=== PATIENT | female | born 1955 | race Caucasian/White ===

== ENCOUNTER → 2016-03-24 | Outpatient (REF) | payer MEDICARE ==
[~2016-03-24] MED LIST: /DULO30CA OR; /MOXI40TA; /PANT40TA; ACET50TA PO; ASPI81TA45 PO; ATROVENT; BACTROBAN TOP; COLA100C2; COLACE; CYMB60CA3 PO; DOCU10ELUD PO; FISH1000 PO; GLUC500T PO; HYDR25TA6; IBUPPOW25; ICAPCAP PO; JANUVIA; LASI20TA; LASI20TA PO; LASI40TA PO; LEVA500T PO; LIDO5DIS; LISI10TA4; LISI5TAB PO; LISINOPRIL/HCTZ PO; MELOPOW PO; NICO21DI4; NICO21DI4 TD; NICO21PAT EXT; OMEP20TA7 PO; PERC5TAB8; PERCOCET FT; PRED10TA2; ROSU10TA OR; SALI0.9I2 IJ; SENNSYP; SIMV20TA2; SIMV20TA2 PO; TIZA4CAP PO; ULTR50TA PO; VANC1ADVIV IV; VICO5TA PO; VICOBULK PO; VITA50TA12 IM; WARF5TAB66 PO; XOPENEX; [UNRECOGNIZED DRUG - CODE] IV; [UNRECOGNIZED DRUG - OTHER]
[2016-03-24 11:16] LABS: INR 1.6
== END ==
LOC: M SFHCCLAY 08:29
PROVIDERS: ATTEND Family Medicine
DX: Z51.81 Encounter for therapeutic drug level monitoring (principal); Z79.01 Long term (current) use of anticoagulants

== ENCOUNTER → 2016-04-07 | Outpatient (REF) | payer MEDICARE ==
[2016-04-07 17:56] LABS: INR 1.98
== END ==
LOC: M SFHCCLAY 10:06
PROVIDERS: ATTEND Family Medicine
DX: Z51.81 Encounter for therapeutic drug level monitoring (principal); Z79.01 Long term (current) use of anticoagulants

== ENCOUNTER → 2016-04-22 | Outpatient (REF) | payer MEDICARE ==
[2016-04-22 11:38] LABS: INR 2.28
== END ==
LOC: M SFHCCLAY 08:11
PROVIDERS: ATTEND Family Medicine
DX: Z79.01 Long term (current) use of anticoagulants (principal)

== ENCOUNTER → 2016-05-13 | Outpatient (REF) | payer MEDICARE ==
[2016-05-13 11:48] LABS: INR 1.74
== END ==
LOC: M SFHCCLAY 08:22
PROVIDERS: ATTEND Family Medicine
DX: Z79.01 Long term (current) use of anticoagulants (principal)

== ENCOUNTER → 2016-05-27 | Outpatient (REF) | payer MEDICARE ==
[2016-05-27 11:33] LABS: INR 1.55
== END ==
LOC: M SFHCCLAY 08:21
PROVIDERS: ATTEND Family Medicine
DX: Z79.01 Long term (current) use of anticoagulants (principal)

== ENCOUNTER → 2016-06-03 | Outpatient (REF) | payer MEDICARE ==
[2016-06-03 11:47] LABS: INR 1.84
== END ==
LOC: M SFHCCLAY 08:20
PROVIDERS: ATTEND Family Medicine
DX: Z79.01 Long term (current) use of anticoagulants (principal)

== ENCOUNTER → 2016-06-10 | Outpatient (REF) | payer MEDICARE ==
[2016-06-10 12:34] LABS: INR 1.57
== END ==
LOC: M SFHCCLAY 08:20
PROVIDERS: ATTEND Family Medicine
DX: Z79.01 Long term (current) use of anticoagulants (principal)

== ENCOUNTER → 2016-06-17 | Outpatient (REF) | payer MEDICARE ==
[2016-06-17 11:32] LABS: INR 2.18
== END ==
LOC: M SFHCCLAY 08:22
PROVIDERS: ATTEND Family Medicine
DX: Z79.01 Long term (current) use of anticoagulants (principal)

== ENCOUNTER → 2016-06-24 | Outpatient (REF) | payer MEDICARE ==
[2016-06-24 12:23] LABS: INR 1.85
== END ==
LOC: M SFHCCAPE 08:18
PROVIDERS: ATTEND Family Medicine
DX: Z79.01 Long term (current) use of anticoagulants (principal)

== ENCOUNTER → 2016-07-05 | Outpatient (REF) | payer MEDICARE ==
[2016-07-05 12:44] LABS: INR 2.93
== END ==
LOC: M SFHCCLAY 08:26
PROVIDERS: ATTEND Family Medicine
DX: Z51.81 Encounter for therapeutic drug level monitoring (principal); Z79.01 Long term (current) use of anticoagulants

== ENCOUNTER → 2016-07-12 | Outpatient (REF) | payer MEDICARE ==
[2016-07-12 19:13] LABS: BASO % 0.4 % (0.0-1.0); EOS # 0.1 K/mm3 (0.0-0.50); LARGE UNSTAINED CELL # 0.1 K/mm3 (0.0-0.4); LARGE UNSTAINED CELL % 1.2 % (0.0-4.0); LYMPH # 3.2 K/mm3 (1.5-4.5); LYMPH % 28.5 % (24.0-44.0); MEAN CORPUSCULAR HEMOGLOBIN 26.2 pg (27.0-33.0); MEAN CORPUSCULAR HGB CONC 31.2 g/dl (32.0-36.5); MEAN CORPUSCULAR VOLUME 83.8 fl (80.0-96.0); MONO # 0.5 K/mm3 (0.0-0.8); MONO % 4.9 % (0.0-5.0); NEUTROPHILS # 6.8 K/mm3 (1.8-7.7); PLATELET COUNT, AUTOMATED 358 k/mm3 (150-450); RED CELL DISTRIBUTION WIDTH 16.3 % (11.5-14.5); WHITE BLOOD COUNT 10.6 K/mm3 (4.0-10.0)
[2016-07-12 19:39] LABS: ALBUMIN 3.8 GM/DL (3.2-5.2); ALBUMIN/GLOBULIN RATIO 1.12 (1.00-1.93); ALKALINE PHOSPHATASE 101 U/L (45-117); ALT/SGPT 21 U/L (12-78); ANION GAP 12 MEQ/L (8-16); AST/SGOT 10 U/L (15-37); BILIRUBIN,TOTAL 0.3 MG/DL (0.2-1.0); BLOOD UREA NITROGEN 21 MG/DL (7-18); CALCIUM LEVEL 8.6 MG/DL (8.8-10.2); CARBON DIOXIDE LEVEL 23 MEQ/L (21-32); CHLORIDE LEVEL 105 MEQ/L (98-107); CHOLESTEROL LEVEL 163 MG/DL (<200); CREATININE FOR GFR 0.74 MG/DL (0.55-1.02); GLOMERULAR FILTRATION RATE > 60.0 (>45); GLUCOSE, FASTING 100 MG/DL (80-110); POTASSIUM SERUM 4.1 MEQ/L (3.5-5.1); SODIUM LEVEL 140 MEQ/L (136-145); THYROXINE (T4) 11.6 UG/DL (4.5-12.0); TOTAL PROTEIN 7.2 GM/DL (6.4-8.2); TRIGLYCERIDES LEVEL 262 MG/DL (<150)
[2016-07-12 20:03] LABS: VITAMIN B12 LEVEL 396 PG/ML (247-911)
== END ==
LOC: M SFHCCLAY 11:21
PROVIDERS: ATTEND Family Medicine
DX: E53.8 Deficiency of other specified B group vitamins (principal); E11.9 Type 2 diabetes mellitus without complications; E78.2 Mixed hyperlipidemia; E03.9 Hypothyroidism, unspecified; I10 Essential (primary) hypertension; J01.00 Acute maxillary sinusitis, unspecified; J44.1 Chronic obstructive pulmonary disease with (acute) exacerbation; K21.9 Gastro-esophageal reflux disease without esophagitis; E55.9 Vitamin D deficiency, unspecified; Z51.81 Encounter for therapeutic drug level monitoring; Z79.01 Long term (current) use of anticoagulants

== ENCOUNTER → 2016-07-20 | Outpatient (REF) | payer MEDICARE ==
[2016-07-20 11:49] LABS: INR 2.36
== END ==
LOC: M SFHCCLAY 08:10
PROVIDERS: ATTEND Family Medicine
DX: Z79.01 Long term (current) use of anticoagulants (principal)

== ENCOUNTER → 2016-08-03 | Outpatient (REF) | payer MEDICARE ==
[2016-08-03 12:02] LABS: INR 2.41
== END ==
LOC: M SFHCCLAY 07:59
PROVIDERS: ATTEND Family Medicine
DX: Z79.01 Long term (current) use of anticoagulants (principal)

== ENCOUNTER → 2016-08-26 | Outpatient (REF) | payer MEDICARE ==
[2016-08-26 16:49] LABS: INR 2.68
== END ==
LOC: M SFHCCLAY 12:53
PROVIDERS: ATTEND Family Medicine
DX: Z79.01 Long term (current) use of anticoagulants (principal)

== ENCOUNTER → 2016-09-22 | Outpatient (REF) | payer MEDICARE ==
[2016-09-22 11:20] LABS: INR 2.8
== END ==
LOC: M SFHCCLAY 07:32
PROVIDERS: ATTEND Family Medicine
DX: Z79.01 Long term (current) use of anticoagulants (principal)

== ENCOUNTER → 2016-10-21 | Outpatient (REF) | payer MEDICARE ==
[2016-10-21 12:23] LABS: INR 2.55
== END ==
LOC: M SFHCCLAY 07:37
PROVIDERS: ATTEND Family Medicine
DX: Z79.01 Long term (current) use of anticoagulants (principal)

== ENCOUNTER → 2016-11-18 | Outpatient (REF) | payer MEDICARE ==
[2016-11-18 12:32] LABS: INR 2.29
== END ==
LOC: M SFHCCLAY 08:02
PROVIDERS: ATTEND Family Medicine
DX: Z79.01 Long term (current) use of anticoagulants (principal)

== ENCOUNTER → 2016-12-02 | Outpatient (REF) | payer MEDICARE ==
[2016-12-02 19:35] LABS: ALBUMIN 3.9 GM/DL (3.2-5.2); ALKALINE PHOSPHATASE 95 U/L (45-117); ALT/SGPT 22 U/L (12-78); AST/SGOT 13 U/L (15-37); BILIRUBIN,TOTAL 0.2 MG/DL (0.2-1.0); BLOOD UREA NITROGEN 16 MG/DL (7-18); CALCIUM LEVEL 9.7 MG/DL (8.8-10.2); CARBON DIOXIDE LEVEL 27 MEQ/L (21-32); CHLORIDE LEVEL 107 MEQ/L (98-107); CREATININE FOR GFR 0.67 MG/DL (0.55-1.02); GLUCOSE, FASTING 111 MG/DL (80-110); POTASSIUM SERUM 4.5 MEQ/L (3.5-5.1); SODIUM LEVEL 143 MEQ/L (136-145); THYROXINE (T4) 12.1 UG/DL (4.5-12.0); TOTAL PROTEIN 7.4 GM/DL (6.4-8.2)
[2016-12-02 19:55] LABS: ANION GAP 9 MEQ/L (8-16)
[2016-12-02 19:56] LABS: ALBUMIN/GLOBULIN RATIO 1.11 (1.00-1.93)
== END ==
LOC: M SFHCCLAY 13:13
PROVIDERS: ATTEND Family Medicine
DX: E11.9 Type 2 diabetes mellitus without complications (principal); G44.52 New daily persistent headache (NDPH); E03.9 Hypothyroidism, unspecified
CPT/HCPCS: 80053; 83036; 84436; 84443; 84480; 85652; 86140; G0463

== ENCOUNTER → 2016-12-20 | Outpatient (REF) | payer MEDICARE ==
[2016-12-20 12:08] LABS: INR 1.87
== END ==
LOC: M SFHCCLAY 07:50
PROVIDERS: ATTEND Family Medicine
DX: Z79.01 Long term (current) use of anticoagulants (principal)

== ENCOUNTER → 2017-01-04 | Outpatient (REF) | payer MEDICARE ==
[2017-01-04 12:52] LABS: INR 2.68
== END ==
LOC: M SFHCCLAY 08:45
PROVIDERS: ATTEND Family Medicine
DX: Z79.01 Long term (current) use of anticoagulants (principal)

== ENCOUNTER → 2017-01-25 | Outpatient (REF) | payer MEDICARE ==
[2017-01-25 12:47] LABS: INR 2.22
== END ==
LOC: M SFHCCLAY 08:00
PROVIDERS: ATTEND Family Medicine
DX: Z79.01 Long term (current) use of anticoagulants (principal)

== ENCOUNTER → 2017-02-28 | Outpatient (REF) | payer MEDICARE ==
[2017-02-28 11:56] LABS: INR 2.15
== END ==
LOC: M SFHCCLAY 08:17
PROVIDERS: ATTEND Family Medicine
DX: Z79.01 Long term (current) use of anticoagulants (principal)

== ENCOUNTER → 2017-03-29 | Outpatient (REF) | payer MEDICARE ==
[2017-03-29 11:42] LABS: INR 2.48; PROTHROMBIN TIME 27.8 SECONDS (12.4-14.5)
== END ==
LOC: M SFHCCLAY 08:08
DX: Z79.01 Long term (current) use of anticoagulants (principal)
CPT/HCPCS: 85610

== ENCOUNTER → 2017-04-26 | Outpatient (REF) | payer MEDICARE ==
[2017-04-26 11:38] LABS: INR 2.62; PROTHROMBIN TIME 29.1 SECONDS (12.4-14.5)
== END ==
LOC: M SFHCCLAY 08:01
DX: Z79.01 Long term (current) use of anticoagulants (principal)
CPT/HCPCS: 85610

== ENCOUNTER → 2017-05-24 | Outpatient (REF) | payer MEDICARE ==
[2017-05-24 12:25] LABS: INR 3.33; PROTHROMBIN TIME 35.4 SECONDS (12.4-14.5)
== END ==
LOC: M SFHCCLAY 08:03
DX: Z79.01 Long term (current) use of anticoagulants (principal)
CPT/HCPCS: 85610

== ENCOUNTER → 2017-06-07 | Outpatient (REF) | payer MEDICARE ==
[2017-06-07 11:26] LABS: BASO % 0.5 % (0.0-1.0); EOS # 0.2 10^3/uL (0.0-0.50); EOS % 2.5 % (0.0-3.0); HEMATOCRIT 38.1 % (36.0-47.0); HEMOGLOBIN 11.3 g/dl (12.0-16.0); IMMATURE GRANULOCYTE % 0.3 % (0-3.0); LYMPH # 2.3 10^3/uL (1.5-4.5); LYMPH % 29.3 % (24.0-44.0); MEAN CORPUSCULAR HEMOGLOBIN 24.3 pg (27.0-33.0); MEAN CORPUSCULAR HGB CONC 29.7 g/dl (32.0-36.5); MEAN CORPUSCULAR VOLUME 81.9 fl (80.0-96.0); MONO # 0.5 10^3/uL (0.0-0.8); MONO % 6.8 % (0.0-5.0); NEUTROPHILS # 4.8 10^3/uL (1.8-7.7); NEUTROPHILS % 60.6 % (36.0-66.0); PLATELET COUNT, AUTOMATED 314 10^3/uL (150-450); RED BLOOD COUNT 4.65 10^6/uL (4.00-5.40); RED CELL DISTRIBUTION WIDTH 16.5 % (11.5-14.5)
[2017-06-07 11:34] LABS: PROTHROMBIN TIME 26.2 SECONDS (12.4-14.5)
[2017-06-07 11:42] LABS: ALBUMIN 3.5 GM/DL (3.2-5.2); ALBUMIN/GLOBULIN RATIO 1.03 (1.00-1.93); ALKALINE PHOSPHATASE 87 U/L (45-117); ALT/SGPT 18 U/L (12-78); ANION GAP 7 MEQ/L (8-16); AST/SGOT 9 U/L (7-37); BILIRUBIN,TOTAL 0.2 MG/DL (0.2-1.0); BLOOD UREA NITROGEN 16 MG/DL (7-18); CALCIUM LEVEL 8.5 MG/DL (8.8-10.2); CARBON DIOXIDE LEVEL 28 MEQ/L (21-32); CHLORIDE LEVEL 106 MEQ/L (98-107); CHOLESTEROL LEVEL 133 MG/DL (<200); CHOLESTEROL RISK RATIO 3.325 (<5); GLOMERULAR FILTRATION RATE > 60.0 (>45); GLUCOSE, FASTING 162 MG/DL (70-100); HDL CHOLESTEROL 40 MG/DL (>40); LDL CHOLESTEROL 48.2 MG/DL (<100); NON-HDL-C 93 MG/DL; POTASSIUM SERUM 4.2 MEQ/L (3.5-5.1); SODIUM LEVEL 141 MEQ/L (136-145); TOTAL PROTEIN 6.9 GM/DL (6.4-8.2); TRIGLYCERIDES LEVEL 224 MG/DL (<150)
[2017-06-07 11:44] LABS: THYROID STIMULATING HORMONE 0.426 uIU/ML (0.358-3.740); VITAMIN B12 LEVEL 319 PG/ML (247-911)
[2017-06-07 11:44] LABS: THYROXINE (T4) 10.5 UG/DL (4.5-12.0)
[2017-06-07 11:46] LABS: FOLATE 13.7 NG/ML (>5.4)
[2017-06-07 11:47] LABS: ESTIMATED AVERAGE GLUCOSE 169 MG/DL (60-110); HEMOGLOBIN A1c 7.5 %
[2017-06-07 12:12] LABS: MALB URINE SIEMENS 54.5 MG/L
[2017-06-09 00:07] LABS: VITAMIN D 1,25 DIHYDROXY 72.8 pg/mL (19.9-79.3)
== END ==
LOC: M SFHCCLAY 08:20
DX: Z51.81 Encounter for therapeutic drug level monitoring (principal); Z79.01 Long term (current) use of anticoagulants; E53.8 Deficiency of other specified B group vitamins; E03.9 Hypothyroidism, unspecified; E55.9 Vitamin D deficiency, unspecified; I10 Essential (primary) hypertension; E11.9 Type 2 diabetes mellitus without complications
CPT/HCPCS: 82746

== ENCOUNTER → 2017-07-05 | Outpatient (REF) | payer MEDICARE ==
[2017-07-05 16:54] LABS: INR 2.42; PROTHROMBIN TIME 27.3 SECONDS (12.4-14.5)
== END ==
LOC: M SFHCCLAY 13:23
DX: Z79.01 Long term (current) use of anticoagulants (principal)
CPT/HCPCS: 85610

== ENCOUNTER → 2017-08-04 | Outpatient (REF) | payer MEDICARE ==
[2017-08-04 12:14] LABS: INR 0.97
== END ==
LOC: M SFHCCLAY 08:51
DX: Z79.01 Long term (current) use of anticoagulants (principal)
CPT/HCPCS: 85610

== ENCOUNTER → 2017-08-16 | Outpatient (REF) | payer MEDICARE ==
[2017-08-16 16:57] LABS: INR 2.71; PROTHROMBIN TIME 29.9 SECONDS (12.4-14.5)
== END ==
LOC: M SFHCCLAY 10:53
DX: Z79.01 Long term (current) use of anticoagulants (principal)
CPT/HCPCS: 85610

== ENCOUNTER → 2017-09-19 | Outpatient (REF) | payer MEDICARE ==
[2017-09-19 11:55] LABS: HEMATOCRIT 38.4 % (36.0-47.0); HEMOGLOBIN 11.6 g/dl (12.0-15.5); MEAN CORPUSCULAR HEMOGLOBIN 24.7 pg (27.0-33.0); MEAN CORPUSCULAR HGB CONC 30.2 g/dl (32.0-36.5); MEAN CORPUSCULAR VOLUME 81.9 fl (80.0-96.0); PLATELET COUNT, AUTOMATED 296 10^3/uL (150-450); RED BLOOD COUNT 4.69 10^6/uL (4.00-5.40)
[2017-09-19 12:01] LABS: ADD MANUAL DIFFER YES; DIFF SLIDE NUMBER 164; POSITIVE DIFF POS FLAG
[2017-09-19 12:17] LABS: INR 1.43; PROTHROMBIN TIME 17.7 SECONDS (12.1-14.4)
[2017-09-19 12:47] LABS: ALBUMIN 3.6 GM/DL (3.2-5.2); ALBUMIN/GLOBULIN RATIO 1.09 (1.00-1.93); ALKALINE PHOSPHATASE 84 U/L (45-117); ALT/SGPT 18 U/L (12-78); ANION GAP 8 MEQ/L (8-16); AST/SGOT 6 U/L (7-37); BILIRUBIN,TOTAL 0.2 MG/DL (0.2-1.0); BLOOD UREA NITROGEN 25 MG/DL (7-18); CALCIUM LEVEL 8.6 MG/DL (8.8-10.2); CARBON DIOXIDE LEVEL 27 MEQ/L (21-32); CHLORIDE LEVEL 106 MEQ/L (98-107); CREATININE FOR GFR 0.81 MG/DL (0.55-1.30); GLOMERULAR FILTRATION RATE > 60.0 (>45); GLUCOSE, FASTING 128 MG/DL (70-100); POTASSIUM SERUM 4.3 MEQ/L (3.5-5.1); SODIUM LEVEL 141 MEQ/L (136-145); THYROID STIMULATING HORMONE 0.675 uIU/ML (0.358-3.740); TOTAL PROTEIN 6.9 GM/DL (6.4-8.2)
[2017-09-19 13:07] LABS: ANISOCYTOSIS 1+; BASOPHILS 1 % (0-4); EOSINOPHILS 4 % (0-5); LYMPHOCYTES 39 % (16-52); MONOCYTES 3 % (0-8); MYELOCYTES 1 % (0-0); NEUTROPHILS 52 % (35-75); PLATELET ESTIMATE NORMAL (NORMAL); POIKILOCYTOSIS 1+
[2017-09-19 14:01] LABS: ESTIMATED AVERAGE GLUCOSE 177 MG/DL (60-110); HEMOGLOBIN A1c 7.8 %
== END ==
LOC: M SFHCCLAY 08:21
DX: Z51.81 Encounter for therapeutic drug level monitoring (principal); Z79.01 Long term (current) use of anticoagulants; I10 Essential (primary) hypertension; E11.9 Type 2 diabetes mellitus without complications; E03.9 Hypothyroidism, unspecified
CPT/HCPCS: 84443

== ENCOUNTER → 2017-10-03 | Outpatient (REF) | payer MEDICARE ==
[2017-10-03 12:29] LABS: INR 4.54; PROTHROMBIN TIME 44.2 SECONDS (12.1-14.4)
== END ==
LOC: M SFHCCLAY 10:03
DX: Z79.01 Long term (current) use of anticoagulants (principal); Z86.718 Personal history of other venous thrombosis and embolism; D68.51 Activated protein C resistance
CPT/HCPCS: 85610

== ENCOUNTER → 2017-10-18 | Outpatient (REF) | payer MEDICARE ==
[2017-10-18 11:57] LABS: INR 2.68; PROTHROMBIN TIME 29.1 SECONDS (12.1-14.4)
== END ==
LOC: M SFHCCLAY 08:58
DX: Z79.01 Long term (current) use of anticoagulants (principal)
CPT/HCPCS: 85610

== ENCOUNTER → 2017-11-01 | Outpatient (REF) | payer MEDICARE | LOC: M SFHCCLAY 08:19 | DX: Z86.718 Personal history of other venous thrombosis and embolism (principal) ==

== ENCOUNTER → 2017-11-23 | Outpatient (REF) | payer MEDICARE ==
[2017-11-23 18:32] LABS: INR 2.38; PROTHROMBIN TIME 26.5 SECONDS (12.1-14.4)
== END ==
LOC: M SFHCCLAY 10:16
DX: Z79.01 Long term (current) use of anticoagulants (principal)
CPT/HCPCS: 85610

== ENCOUNTER → 2018-08-28 | Outpatient (REF) | payer MEDICARE ==
[~2018-08-28] MED LIST changes: -/DULO30CA OR; -/MOXI40TA; -/PANT40TA; -ACET50TA PO; +AVEL1TAB2; +CRES10TA32 OR; +CYMB1CAP5 OR; -DOCU10ELUD PO; +DOCU5LIQ PO; +HEPA1INJ IV; +MAPA500T17 PO; +NICO21DI3 EXT; -NICO21PAT EXT; +OXYC1TAB23 FT; -PERCOCET FT; +PROT1TAB2; -ROSU10TA OR; -[UNRECOGNIZED DRUG - CODE] IV
[2018-08-29 12:04] LABS: BASO # 0.1 10^3/uL (0.0-0.2); BASO % 0.4 % (0.0-1.0); EOS # 0.2 10^3/uL (0.0-0.50); EOS % 1.3 % (0.0-3.0); HEMATOCRIT 41.4 % (36.0-47.0); HEMOGLOBIN 12.2 g/dl (12.0-15.5); LYMPH # 3.2 10^3/uL (1.5-4.5); MEAN CORPUSCULAR HEMOGLOBIN 24.8 pg (27.0-33.0); MEAN CORPUSCULAR HGB CONC 29.5 g/dl (32.0-36.5); MEAN CORPUSCULAR VOLUME 84.3 fl (80.0-96.0); MONO # 0.7 10^3/uL (0.0-0.8); MONO % 6.1 % (0.0-5.0); NEUTROPHILS # 7.2 10^3/uL (1.8-7.7); NEUTROPHILS % 63.8 % (36.0-66.0); PLATELET COUNT, AUTOMATED 305 10^3/uL (150-450); RED BLOOD COUNT 4.91 10^6/uL (4.00-5.40); WHITE BLOOD COUNT 11.3 10^3/uL (4.0-10.0)
[2018-08-29 12:39] LABS: ALBUMIN 3.5 GM/DL (3.2-5.2); ALT/SGPT 22 U/L (12-78); BILIRUBIN,TOTAL 0.3 MG/DL (0.2-1.0); BLOOD UREA NITROGEN 17 MG/DL (7-18); CALCIUM LEVEL 9.5 MG/DL (8.8-10.2); CARBON DIOXIDE LEVEL 27 MEQ/L (21-32); CHLORIDE LEVEL 105 MEQ/L (98-107); CHOLESTEROL LEVEL 147 MG/DL (<200); CHOLESTEROL RISK RATIO 3.972 (<5); CREATININE FOR GFR 0.79 MG/DL (0.55-1.30); GLOMERULAR FILTRATION RATE > 60.0 (>45); GLUCOSE, FASTING 141 MG/DL (70-100); HDL CHOLESTEROL 37 MG/DL (>40); LDL CHOLESTEROL 37 MG/DL (<100); NON-HDL-C 110 MG/DL; POTASSIUM SERUM 4.3 MEQ/L (3.5-5.1); SODIUM LEVEL 140 MEQ/L (136-145); THYROID STIMULATING HORMONE 0.432 uIU/ML (0.358-3.740); THYROXINE (T4) 11.3 UG/DL (4.5-12.0); TOTAL PROTEIN 7.2 GM/DL (6.4-8.2); TRIGLYCERIDES LEVEL 364 MG/DL (<150); VITAMIN B12 LEVEL 246 PG/ML (247-911)
[2018-08-29 12:46] LABS: HEMOGLOBIN A1c 8.4 %
== END ==
LOC: M SFHCCLAY 14:58
PROVIDERS: ATTEND Family Medicine
DX: E11.9 Type 2 diabetes mellitus without complications (principal); I10 Essential (primary) hypertension; E53.8 Deficiency of other specified B group vitamins; E55.9 Vitamin D deficiency, unspecified; E03.9 Hypothyroidism, unspecified

== ENCOUNTER → 2018-08-28 | Outpatient (CLI) | payer MEDICARE ==
--- NOTE | 2018-08-28 16:27 | REP ---
PA and lateral chest: Comparison is 12/18/2015. The lung faustin are clear. The cardiac size is normal. The jesus alberto, mediastinum, and skeletal structures are unremarkable. Impression: Negative PA and lateral chest. There is no interval change. Electronically Signed by Lázaro Caldera MD 08/28/2018 04:18 P
== END ==
LOC: M CLY 15:52
PROVIDERS: ATTEND Family Medicine
DX: R06.02 Shortness of breath (principal); E11.9 Type 2 diabetes mellitus without complications; E55.9 Vitamin D deficiency, unspecified
CPT/HCPCS: 71046; 80053; 80061; 82607; 82652; 83036; 84436; 84443; 85025; 94010; G0463

== ENCOUNTER → 2020-04-08 | Outpatient (REF) | payer OTHER ==
[2020-04-09 11:46] LABS: BASO # 0.1 10^3/uL (0.0-0.2); BASO % 0.6 % (0.0-1.0); EOS # 0.1 10^3/uL (0.0-0.5); HEMATOCRIT 41.8 % (36.0-47.0); HEMOGLOBIN 12.2 g/dl (12.0-15.5); LYMPH # 3.3 10^3/uL (1.5-5.0); LYMPH % 24.4 % (24.0-44.0); MEAN CORPUSCULAR HEMOGLOBIN 23.9 pg (27.0-33.0); MEAN CORPUSCULAR HGB CONC 29.2 g/dl (32.0-36.5); MONO # 0.9 10^3/uL (0.0-0.8); MONO % 6.4 % (0.0-5.0); NEUTROPHILS # 9.2 10^3/uL (1.5-8.5); NEUTROPHILS % 67.3 % (36.0-66.0); PLATELET COUNT, AUTOMATED 345 10^3/uL (150-450); WHITE BLOOD COUNT 13.6 10^3/uL (4.0-10.0)
[2020-04-09 12:18] LABS: ALBUMIN 3.8 GM/DL (3.2-5.2); ALT/SGPT 16 U/L (12-78); BILIRUBIN,TOTAL 0.2 MG/DL (0.2-1.0); BLOOD UREA NITROGEN 15 MG/DL (7-18); CALCIUM LEVEL 9.3 MG/DL (8.8-10.2); CARBON DIOXIDE LEVEL 26 MEQ/L (21-32); CHLORIDE LEVEL 107 MEQ/L (98-107); CHOLESTEROL LEVEL 138 MG/DL (<200); CHOLESTEROL RISK RATIO 4.058 (<5); CREATININE FOR GFR 0.79 MG/DL (0.55-1.30); GLOMERULAR FILTRATION RATE > 60.0 (>45); GLUCOSE, FASTING 88 MG/DL (70-100); HDL CHOLESTEROL 34 MG/DL (>40); LDL CHOLESTEROL 57 MG/DL (<100); MAGNESIUM LEVEL 1.7 MG/DL (1.8-2.4); NON-HDL-C 104 MG/DL; POTASSIUM SERUM 5.7 MEQ/L (3.5-5.1); SODIUM LEVEL 140 MEQ/L (136-145); THYROID STIMULATING HORMONE 0.281 uIU/ML (0.358-3.740); TOTAL PROTEIN 7.2 GM/DL (6.4-8.2); TRIGLYCERIDES LEVEL 234 MG/DL (<150); VITAMIN B12 LEVEL 1250 PG/ML (247-911)
[2020-04-09 13:00] LABS: HEMOGLOBIN A1c 6.2 %
== END ==
LOC: M SFHCCLAY 15:20
PROVIDERS: ATTEND Family Medicine
DX: K21.9 Gastro-esophageal reflux disease without esophagitis (principal); I10 Essential (primary) hypertension; E11.9 Type 2 diabetes mellitus without complications; E03.9 Hypothyroidism, unspecified; E55.9 Vitamin D deficiency, unspecified; E53.8 Deficiency of other specified B group vitamins
CPT/HCPCS: 80053; 80061; 82607; 82652; 83036; 83735; 84443; 85025; G0463

== ENCOUNTER → 2020-08-04 | Outpatient (REF) | payer OTHER ==
[2020-08-05 11:42] LABS: BASO # 0.1 10^3/uL (0.0-0.2); BASO % 0.4 % (0.0-1.0); EOS # 0.2 10^3/uL (0.0-0.5); EOS % 1.3 % (0.0-3.0); HEMATOCRIT 40.8 % (36.0-47.0); HEMOGLOBIN 11.6 g/dl (12.0-15.5); LYMPH # 3.3 10^3/uL (1.5-5.0); LYMPH % 24.8 % (24.0-44.0); MEAN CORPUSCULAR HGB CONC 28.4 g/dl (32.0-36.5); MEAN CORPUSCULAR VOLUME 80.8 fl (80.0-96.0); MONO # 0.9 10^3/uL (0.0-0.8); MONO % 6.6 % (2.0-8.0); NEUTROPHILS # 8.8 10^3/uL (1.5-8.5); NEUTROPHILS % 66.6 % (36.0-66.0); PLATELET COUNT, AUTOMATED 355 10^3/uL (150-450); RED BLOOD COUNT 5.05 10^6/uL (4.00-5.40); WHITE BLOOD COUNT 13.2 10^3/uL (4.0-10.0)
[2020-08-05 12:15] LABS: ALBUMIN 3.6 GM/DL (3.2-5.2); ALT/SGPT 16 U/L (12-78); BILIRUBIN,TOTAL 0.3 MG/DL (0.2-1.0); BLOOD UREA NITROGEN 13 MG/DL (7-18); CALCIUM LEVEL 9.3 MG/DL (8.8-10.2); CARBON DIOXIDE LEVEL 28 MEQ/L (21-32); CHLORIDE LEVEL 103 MEQ/L (98-107); CREATININE FOR GFR 0.65 MG/DL (0.55-1.30); GLOMERULAR FILTRATION RATE > 60.0 (>45); GLUCOSE, FASTING 97 MG/DL (70-100); IRON (FE) 29 UG/DL (50-170); POTASSIUM SERUM 5.1 MEQ/L (3.5-5.1); SODIUM LEVEL 138 MEQ/L (136-145); TOTAL PROTEIN 6.9 GM/DL (6.4-8.2)
[2020-08-05 12:19] LABS: VITAMIN B12 LEVEL 410 PG/ML (247-911)
[2020-08-05 12:20] LABS: FOLATE 4.6 NG/ML (>5.4)
== END ==
LOC: M SFHCCLAY 14:42
PROVIDERS: ATTEND Family Medicine
DX: D64.9 Anemia, unspecified (principal); I10 Essential (primary) hypertension
CPT/HCPCS: 80053; 82607; 82746; 83540; 85025; G0463

== ENCOUNTER 2022-07-25 10:16 | Inpatient (IN) | payer OTHER ==
[~2022-07-25] VITALS: Ht 152.4 cm; Wt 96.0 kg
[2022-07-25] MEDS ORDERED: IPRATROPIUM 0.5MG/ALBUTEROL 2.5MG INH SOL UD 3ML (DUONEB) NEB ONE (10:30)
[2022-07-25] MEDS ORDERED: ALBUTEROL SULFATE 2.5MG/0.5ML INH NEB SOLN INH ONE (10:30)
[2022-07-25] MEDS ORDERED: NS 500 ML IV ONE ×2 (10:30→12:05)
[2022-07-25] MEDS ORDERED: LIDOCAINE 2% 5ML JELLY UROJET TOP ONE (11:10)
[2022-07-25 11:30] LABS: BASO # 0.1 10^3/uL (0.0-0.2); BASO % 0.5 % (0.0-1.0); EOS % 0.4 % (0.0-3.0); HEMATOCRIT 34.4 % (36.0-47.0); HEMOGLOBIN 9.7 g/dl (12.0-15.5); LYMPH # 0.4 10^3/uL (1.5-5.0); MEAN CORPUSCULAR HEMOGLOBIN 21.6 pg (27.0-33.0); MEAN CORPUSCULAR HGB CONC 28.2 g/dl (32.0-36.5); MEAN CORPUSCULAR VOLUME 76.6 fl (80.0-96.0); MONO # 0.1 10^3/uL (0.0-0.8); NEUTROPHILS # 10.3 10^3/uL (1.5-8.5); NEUTROPHILS % 93.3 % (36.0-66.0); PLATELET COUNT, AUTOMATED 261 10^3/uL (150-450); RED BLOOD COUNT 4.49 10^6/uL (4.00-5.40); WHITE BLOOD COUNT 11.1 10^3/uL (4.0-10.0)
[2022-07-25 11:42] LABS: INR 2.12; PARTIAL THROMBOPLASTIN TIME 38.3 SECONDS (24.8-34.2); PROTHROMBIN TIME 24.1 SECONDS (12.5-14.5)
[2022-07-25] MEDS ORDERED: ISOVUE-370 76% 100ML VIAL As Ordered ONE (11:51)
[2022-07-25 11:59] LABS: ETHYL ALCOHOL (ETHANOL) < 0.003 % (0.000-0.010)
[2022-07-25 12:00] LABS: ACETAMINOPHEN LEVEL 2.8 UG/ML (10.0-20.0); SALICYLATE LEVEL < 3.0 MG/DL (<30)
[2022-07-25 12:02] LABS: ALBUMIN 3.3 G/DL (3.2-5.2); ALKALINE PHOSPHATASE 150 U/L (46-116); ALT/SGPT 20 U/L (7.0-40); AST/SGOT 34 U/L (<34); BILIRUBIN,DIRECT 0.2 MG/DL (<0.4); BILIRUBIN,TOTAL 0.5 MG/DL (0.3-1.2); BLOOD UREA NITROGEN 19 MG/DL (9-23); CALCIUM LEVEL 9.4 MG/DL (8.3-10.6); CARBON DIOXIDE LEVEL 21 MMOL/L (20-31); CHLORIDE LEVEL 106 MMOL/L (98-107); CK-MB VALUE MASS 1.1 NG/ML (<3.6); CREATININE FOR GFR 0.77 MG/DL (0.55-1.30); GLOMERULAR FILTRATION RATE > 60.0 (>45); GLUCOSE, FASTING 159 MG/DL (74-106); POTASSIUM SERUM 3.7 MMOL/L (3.5-5.1); SODIUM LEVEL 142 MMOL/L (136-145); TOTAL PROTEIN 6.3 G/DL (5.7-8.2)
[2022-07-25] MEDS ORDERED: PANT40TA29 PO (12:12)
[2022-07-25] MEDS ORDERED: LOSA50TA28 PO (12:12)
[2022-07-25] MEDS ORDERED: METO1TAB87 PO (12:12)
[2022-07-25] MEDS ORDERED: AZIT-12 PO (12:12)
[2022-07-25] MEDS ORDERED: WARF4TAB52 PO (12:12)
[2022-07-25] MEDS ORDERED: D3-5CAP PO (12:12)
[2022-07-25] MEDS ORDERED: SIMV40TA20 PO (12:12)
[2022-07-25 12:42] VITALS: BP 136/60
[2022-07-25] MEDS ORDERED: NS 1,000 ML IV ONE ×2 (12:50→13:55)
[2022-07-25 12:56] LABS: CPK CREATINE PHOSPHOKINASE 107 U/L (34-145); MB/CK RELATIVE INDEX 1.02 (< OR =4)
[2022-07-25 13:13] LABS: CK-MB VALUE MASS < 1.0 NG/ML (<3.6)
[2022-07-25 13:14] LABS: CPK CREATINE PHOSPHOKINASE 101 U/L (34-145); MB/CK RELATIVE INDEX 0.99 (< OR =4)
[2022-07-25] MEDS ORDERED: FURO40TA2 PO (13:37)
[2022-07-25] MEDS ORDERED: MELO7.5T35 PO (13:39)
[2022-07-25] MEDS ORDERED: METF500T13 PO (13:47)
[2022-07-25] MEDS ORDERED: SIMV20TA22 PO (13:47)
[2022-07-25] MEDS ORDERED: TIZA4CAP6 PO (13:47)
[2022-07-25] MEDS ORDERED: GLIM2TAB29 PO (13:58)
[2022-07-25] MEDS ORDERED: VENTAER INH (13:58)
[2022-07-25] MEDS ORDERED: MAGN400T2 PO (13:58)
[2022-07-25] MEDS ORDERED: VENL150C43 PO (13:58)
[2022-07-25] MEDS ORDERED: CALCIUM GLUCONATE 1,000 MG in D5W MINI-BAG PLUS 100 ML IV ONE (14:00)
[2022-07-25] MEDS ORDERED: WARF-23 PO (14:02)
[2022-07-25] MEDS ORDERED: ALBUTEROL 90 MCG/ACT 8GM HFA INHALER INH PRN (14:05)
[2022-07-25] MEDS ORDERED: HOME MED LIST COMPLETE! XX SCH (14:05)
[2022-07-25] MEDS ORDERED: GLUCAGON INJ 1MG VIAL SC PRN (14:10)
[2022-07-25] MEDS ORDERED: GLUCOSE 4GM CHEW TABLET PO PRN (14:10)
[2022-07-25] MEDS ORDERED: DEXTROSE 50% 50ML SYRINGE IV PRN (14:10)
[2022-07-25 14:58] LABS: ABG HCO3 20.4 MMOL/L (22.0-26.0); ABG O2 SATURATION 95.9 % (95.0-99.0); ABG PARTIAL PRESSURE CO2 34.6 mmHg (35.0-45.0); ABG STANDARD HCO3 21.1 MMOL/L. (22.0-26.0); ABG TOTAL CO2 21.5 MMOL/L (23.0-31.0); ABG pH (ARTERIAL) 7.389 UNITS (7.350-7.450)
[2022-07-25] MEDS ORDERED: KCL 10MEQ/100ML SWI (KRUN) 10 MEQ in IV 1 EA IV ONE (15:00)
[2022-07-25] MEDS ORDERED: METF850T4 PO (15:13)
[2022-07-25 16:04] LABS: AMPHETAMINES LEVEL URINE NEGATIVE (NEGATIVE); BARBITURATES URINE NEGATIVE (NEGATIVE); BENZODIAZEPINES URINE NEGATIVE (NEGATIVE); CANNABINOIDS URINE NEGATIVE (NEGATIVE); COCAINE METABOLITE URINE NEGATIVE (NEGATIVE); METHADONE URINE NEGATIVE (NEGATIVE); OPIATES URINE NEGATIVE (NEGATIVE); PHENCYCLIDINE URINE NEGATIVE (NEGATIVE)
[2022-07-25] MEDS: LACTOBACILLUS ACIDOPHILUS CAP (BACID) PO SCH (18:00)
[2022-07-25] MEDS ORDERED: INSULIN LISPRO (NovoLOG) PER UNIT SC SCH (18:00)
[2022-07-25] MEDS: LACTULOSE 20GM/30ML SYRUP UDC PO SCH (18:40)
[2022-07-25] MEDS: INSULIN LISPRO (NovoLOG) PER UNIT SC SCH ×2 (18:41→21:25)
[2022-07-25 20:04] VITALS: BP 121/58
[2022-07-25] MEDS ORDERED: SIMVASTATIN 20 MG TAB PO SCH (21:00)
[2022-07-25] MEDS ORDERED: SIMVASTATIN 40 MG TAB PO SCH (21:00)
[2022-07-25] MEDS: SIMVASTATIN 20 MG TAB PO SCH (21:25)
[2022-07-25] MEDS: PANTOPRAZOLE 40MG TAB (PROTONIX) PO SCH (21:25)
[2022-07-25] MEDS: MELOXICAM (MOBIC) 7.5 MG TAB PO SCH (21:25)
[2022-07-25] MEDS: METOPROLOL TART 25 MG TABLET PO SCH (21:25)
[2022-07-25 23:25] VITALS: BP 90/58
[2022-07-26] MEDS: LACTULOSE 20GM/30ML SYRUP UDC PO SCH (01:54)
[2022-07-26] MEDS ORDERED: CHLORASEPTIC SPRAY MT PRN (03:35)
[2022-07-26 04:00] VITALS: BP 137/58
[2022-07-26 05:35] LABS: BASO # 0.1 10^3/uL (0.0-0.2); BASO % 0.4 % (0.0-1.0); HEMATOCRIT 36.5 % (36.0-47.0); HEMOGLOBIN 10.1 g/dl (12.0-15.5); LYMPH # 1.8 10^3/uL (1.5-5.0); LYMPH % 8.5 % (24.0-44.0); MEAN CORPUSCULAR HGB CONC 27.7 g/dl (32.0-36.5); MEAN CORPUSCULAR VOLUME 79.3 fl (80.0-96.0); MONO # 1.5 10^3/uL (0.0-0.8); NEUTROPHILS # 17.8 10^3/uL (1.5-8.5); NEUTROPHILS % 83.3 % (36.0-66.0); PLATELET COUNT, AUTOMATED 296 10^3/uL (150-450); WHITE BLOOD COUNT 21.4 10^3/uL (4.0-10.0)
[2022-07-26 05:47] LABS: INR 1.84; PARTIAL THROMBOPLASTIN TIME 38.5 SECONDS (24.8-34.2); PROTHROMBIN TIME 21.6 SECONDS (12.5-14.5)
[2022-07-26 05:58] LABS: ALKALINE PHOSPHATASE 95 U/L (46-116); ALT/SGPT 15 U/L (7.0-40); AST/SGOT < 8 U/L (<34); BILIRUBIN,TOTAL 0.2 MG/DL (0.3-1.2); BLOOD UREA NITROGEN 16 MG/DL (9-23); CALCIUM LEVEL 9.5 MG/DL (8.3-10.6); CARBON DIOXIDE LEVEL 27 MMOL/L (20-31); CHLORIDE LEVEL 108 MMOL/L (98-107); CHOLESTEROL LEVEL 87 MG/DL (<200); CHOLESTEROL RISK RATIO 3.28 (<5); CREATININE FOR GFR 0.59 MG/DL (0.55-1.30); GLOMERULAR FILTRATION RATE > 60.0 (>45); GLUCOSE, FASTING 116 MG/DL (74-106); HDL CHOLESTEROL 26.5 MG/DL (>40); LDL CHOLESTEROL 37.1 MG/DL (<100); NON-HDL-C 60.5 MG/DL; SODIUM LEVEL 143 MMOL/L (136-145); TOTAL PROTEIN 6.3 G/DL (5.7-8.2); TRIGLYCERIDES LEVEL 117 MG/DL (<150)
[2022-07-26] MEDS: INSULIN LISPRO (NovoLOG) PER UNIT SC SCH ×4 (07:30→20:18)
[2022-07-26 07:32] VITALS: BP 122/88
[2022-07-26] MEDS ORDERED: HEPARIN DRIP 25,000 UNITS in IV 1 EA IV SCH ×2 (08:50→16:40)
[2022-07-26] MEDS: LOSARTAN 50MG TABLET PO SCH (08:50)
[2022-07-26] MEDS ORDERED: HEPARIN SOD (PORCINE) 5000UNITS/ML 1ML VIAL/SYRINGE IV PRN ×2 (08:50→08:55)
[2022-07-26] MEDS: METOPROLOL TART 25 MG TABLET PO SCH ×2 (08:58→20:18)
[2022-07-26] MEDS: VENLAFAXINE **XR** 75MG CAPSULE PO SCH (08:58)
[2022-07-26] MEDS: PANTOPRAZOLE 40MG TAB (PROTONIX) PO SCH ×2 (08:58→20:18)
[2022-07-26] MEDS: LACTOBACILLUS ACIDOPHILUS CAP (BACID) PO SCH ×2 (08:58→17:39)
[2022-07-26] MEDS: MELOXICAM (MOBIC) 7.5 MG TAB PO SCH ×2 (08:59→20:17)
[2022-07-26] MEDS: AZITHROMYCIN 250MG TABLET PO SCH (08:59)
[2022-07-26 10:03] LABS: MAGNESIUM LEVEL 1.8 MG/DL (1.8-2.4)
[2022-07-26] MEDS: MAGNESIUM OXIDE 400MG TAB (MAG-OX) PO SCH (11:15)
[2022-07-26 12:28] VITALS: BP 128/49
[2022-07-26 16:59] VITALS: BP 114/76
[2022-07-26] MEDS: cefTRIAXone SOD 2 GM in D5W MINI-BAG PLUS 50 ML IV SCH (17:39)
[2022-07-26 19:54] VITALS: BP 187/88
[2022-07-26] MEDS: SIMVASTATIN 20 MG TAB PO SCH (20:17)
[2022-07-26] MEDS: IPRATROPIUM 0.5MG/ALBUTEROL 2.5MG INH SOL UD 3ML (DUONEB) NEB PRN (21:25)
[2022-07-27] VITALS (18 sets, daily range): BP systolic 130–160; BP diastolic 58–71; O2SAT 80–97
[2022-07-27 06:35] LABS: BASO # 0.1 10^3/uL (0.0-0.2); BASO % 0.5 % (0.0-1.0); EOS # 0.2 10^3/uL (0.0-0.5); EOS % 1.1 % (0.0-3.0); HEMATOCRIT 30.2 % (36.0-47.0); HEMOGLOBIN 8.3 g/dl (12.0-15.5); LYMPH # 3.4 10^3/uL (1.5-5.0); LYMPH % 22.7 % (24.0-44.0); MEAN CORPUSCULAR HEMOGLOBIN 21.4 pg (27.0-33.0); MEAN CORPUSCULAR HGB CONC 27.5 g/dl (32.0-36.5); MONO # 1.5 10^3/uL (0.0-0.8); NEUTROPHILS # 9.7 10^3/uL (1.5-8.5); NEUTROPHILS % 65.2 % (36.0-66.0); PLATELET COUNT, AUTOMATED 271 10^3/uL (150-450); RED BLOOD COUNT 3.87 10^6/uL (4.00-5.40); WHITE BLOOD COUNT 14.8 10^3/uL (4.0-10.0)
[2022-07-27 06:45] LABS: INR 1.83; PROTHROMBIN TIME 21.5 SECONDS (12.5-14.5)
[2022-07-27 06:47] LABS: PARTIAL THROMBOPLASTIN TIME 45.1 SECONDS (24.8-34.2)
[2022-07-27 07:01] LABS: ALBUMIN 2.6 G/DL (3.2-5.2); ALKALINE PHOSPHATASE 76 U/L (46-116); ALT/SGPT 13 U/L (7.0-40); AST/SGOT 15 U/L (<34); BILIRUBIN,TOTAL 0.3 MG/DL (0.3-1.2); BLOOD UREA NITROGEN 18 MG/DL (9-23); CALCIUM LEVEL 8.5 MG/DL (8.3-10.6); CARBON DIOXIDE LEVEL 29 MMOL/L (20-31); CHLORIDE LEVEL 103 MMOL/L (98-107); CREATININE FOR GFR 0.59 MG/DL (0.55-1.30); GLOMERULAR FILTRATION RATE > 60.0 (>45); GLUCOSE, FASTING 117 MG/DL (74-106); POTASSIUM SERUM 3.8 MMOL/L (3.5-5.1); SODIUM LEVEL 142 MMOL/L (136-145); TOTAL PROTEIN 5.6 G/DL (5.7-8.2)
[2022-07-27] MEDS: INSULIN LISPRO (NovoLOG) PER UNIT SC SCH ×5 (07:30→20:49)
[2022-07-27] MEDS: MELOXICAM (MOBIC) 7.5 MG TAB PO SCH ×2 (08:03→20:49)
[2022-07-27] MEDS: PANTOPRAZOLE 40MG TAB (PROTONIX) PO SCH ×2 (08:03→20:48)
[2022-07-27] MEDS: AZITHROMYCIN 250MG TABLET PO SCH (08:03)
[2022-07-27] MEDS: LACTOBACILLUS ACIDOPHILUS CAP (BACID) PO SCH ×2 (08:03→18:14)
[2022-07-27] MEDS: MAGNESIUM OXIDE 400MG TAB (MAG-OX) PO SCH (08:03)
[2022-07-27] MEDS: LOSARTAN 50MG TABLET PO SCH (08:03)
[2022-07-27] MEDS: VENLAFAXINE **XR** 75MG CAPSULE PO SCH (08:03)
[2022-07-27] MEDS: METOPROLOL TART 25 MG TABLET PO SCH ×2 (08:04→20:49)
[2022-07-27] MEDS: NICOTINE 21MG/24HR 1 EA TRANSDERMAL TD SCH (08:04)
[2022-07-27] MEDS: IPRATROPIUM 0.5MG/ALBUTEROL 2.5MG INH SOL UD 3ML (DUONEB) NEB PRN (08:18)
[2022-07-27] MEDS ORDERED: PROHANCE 279.3MG/ML 5ML VIAL As Ordered ONE (10:39)
[2022-07-27] MEDS ORDERED: PROHANCE 279.3MG/ML 15ML VIAL As Ordered ONE (10:39)
[2022-07-27 14:18] LABS: THYROXINE (T4) 12.3 UG/DL (4.5-10.9)
[2022-07-27] MEDS ORDERED: HEPARIN SOD (PORCINE) 5000UNITS/ML 1ML VIAL/SYRINGE IV PRN (14:30)
[2022-07-27] MEDS: HEPARIN DRIP 25,000 UNITS in IV 1 EA IV SCH (15:25)
[2022-07-27] MEDS ORDERED: WARFARIN SOD 5MG TAB PO ONE (17:00)
[2022-07-27] MEDS: cefTRIAXone SOD 2 GM in D5W MINI-BAG PLUS 50 ML IV SCH (18:14)
[2022-07-27] MEDS: SIMVASTATIN 20 MG TAB PO SCH (20:48)
[2022-07-28] VITALS (26 sets, daily range): BP systolic 122–150; BP diastolic 58–72; PULSE 85; O2SAT 89–98
[2022-07-28 03:44] LABS: HEMATOCRIT 31.4 % (36.0-47.0); HEMOGLOBIN 8.6 g/dl (12.0-15.5); MEAN CORPUSCULAR HEMOGLOBIN 21.6 pg (27.0-33.0); MEAN CORPUSCULAR HGB CONC 27.4 g/dl (32.0-36.5); MEAN CORPUSCULAR VOLUME 78.7 fl (80.0-96.0); PLATELET COUNT, AUTOMATED 273 10^3/uL (150-450); RED BLOOD COUNT 3.99 10^6/uL (4.00-5.40); WHITE BLOOD COUNT 11.6 10^3/uL (4.0-10.0)
[2022-07-28 03:49] LABS: INR 1.82; PROTHROMBIN TIME 21.4 SECONDS (12.5-14.5)
[2022-07-28 03:51] LABS: PARTIAL THROMBOPLASTIN TIME 106.3 SECONDS (24.8-34.2)
[2022-07-28 04:14] LABS: ALBUMIN 2.8 G/DL (3.2-5.2); ALKALINE PHOSPHATASE 74 U/L (46-116); ALT/SGPT 15 U/L (7.0-40); AST/SGOT 15 U/L (<34); BILIRUBIN,TOTAL 0.2 MG/DL (0.3-1.2); BLOOD UREA NITROGEN 14 MG/DL (9-23); CARBON DIOXIDE LEVEL 30 MMOL/L (20-31); CHLORIDE LEVEL 102 MMOL/L (98-107); CREATININE FOR GFR 0.55 MG/DL (0.55-1.30); GLOMERULAR FILTRATION RATE > 60.0 (>45); GLUCOSE, FASTING 135 MG/DL (74-106); POTASSIUM SERUM 4.2 MMOL/L (3.5-5.1); SODIUM LEVEL 138 MMOL/L (136-145); TOTAL PROTEIN 5.8 G/DL (5.7-8.2)
[2022-07-28 04:18] LABS: ATYPICAL LYMPH 8 % (0-5); EOSINOPHILS 2 % (0-3); LYMPHOCYTES 36 % (16-44); MONOCYTES 5 % (0-5); NEUTROPHILS 49 % (28-66); PLATELET ESTIMATE NORMAL (NORMAL)
[2022-07-28 04:19] LABS: ANISOCYTOSIS 1+; HYPOCHROMASIA 1+; MICROCYTOSIS 1+; POIKILOCYTOSIS 1+; POLYCHROMASIA 1+
[2022-07-28] MEDS: HEPARIN DRIP 25,000 UNITS in IV 1 EA IV SCH (08:26)
[2022-07-28] MEDS: VENLAFAXINE **XR** 75MG CAPSULE PO SCH (08:32)
[2022-07-28] MEDS: NICOTINE 21MG/24HR 1 EA TRANSDERMAL TD SCH (08:33)
[2022-07-28] MEDS: MELOXICAM (MOBIC) 7.5 MG TAB PO SCH ×2 (08:33→20:50)
[2022-07-28] MEDS: AZITHROMYCIN 250MG TABLET PO SCH (08:33)
[2022-07-28] MEDS: LACTOBACILLUS ACIDOPHILUS CAP (BACID) PO SCH ×2 (08:33→18:19)
[2022-07-28] MEDS: METOPROLOL TART 25 MG TABLET PO SCH ×2 (08:33→20:49)
[2022-07-28] MEDS: LOSARTAN 50MG TABLET PO SCH (08:33)
[2022-07-28] MEDS: MAGNESIUM OXIDE 400MG TAB (MAG-OX) PO SCH (08:34)
[2022-07-28] MEDS: PANTOPRAZOLE 40MG TAB (PROTONIX) PO SCH ×2 (08:34→20:49)
[2022-07-28] MEDS: INSULIN LISPRO (NovoLOG) PER UNIT SC SCH ×4 (08:34→20:50)
[2022-07-28] MEDS: cefTRIAXone SOD 2 GM in D5W MINI-BAG PLUS 50 ML IV SCH (18:17)
[2022-07-28] MEDS: SIMVASTATIN 20 MG TAB PO SCH (20:49)
[2022-07-29] VITALS (19 sets, daily range): BP systolic 128–188; BP diastolic 62–79; O2SAT 86–99
[2022-07-29] MEDS: HEPARIN DRIP 25,000 UNITS in IV 1 EA IV SCH ×2 (00:33→15:10)
[2022-07-29] MEDS ORDERED: amLODIPine 5 MG TAB PO ONE (02:00)
[2022-07-29 07:16] LABS: HEMATOCRIT 30.3 % (36.0-47.0); HEMOGLOBIN 8.4 g/dl (12.0-15.5); MEAN CORPUSCULAR HEMOGLOBIN 21.9 pg (27.0-33.0); MEAN CORPUSCULAR HGB CONC 27.7 g/dl (32.0-36.5); MEAN CORPUSCULAR VOLUME 78.9 fl (80.0-96.0); PLATELET COUNT, AUTOMATED 268 10^3/uL (150-450); RED BLOOD COUNT 3.84 10^6/uL (4.00-5.40); WHITE BLOOD COUNT 10.4 10^3/uL (4.0-10.0)
[2022-07-29 07:41] LABS: ALBUMIN 2.6 G/DL (3.2-5.2); ALKALINE PHOSPHATASE 65 U/L (46-116); ALT/SGPT 13 U/L (7.0-40); AST/SGOT 10 U/L (<34); BILIRUBIN,TOTAL 0.2 MG/DL (0.3-1.2); BLOOD UREA NITROGEN 9 MG/DL (9-23); CARBON DIOXIDE LEVEL 34 MMOL/L (20-31); CHLORIDE LEVEL 102 MMOL/L (98-107); CREATININE FOR GFR 0.56 MG/DL (0.55-1.30); GLOMERULAR FILTRATION RATE > 60.0 (>45); GLUCOSE, FASTING 157 MG/DL (74-106); POTASSIUM SERUM 4.2 MMOL/L (3.5-5.1); SODIUM LEVEL 140 MMOL/L (136-145); TOTAL PROTEIN 5.6 G/DL (5.7-8.2)
[2022-07-29 07:48] LABS: ATYPICAL LYMPH 1 % (0-5); EOSINOPHILS 4 % (0-3); LYMPHOCYTES 31 % (16-44); MICROCYTOSIS 1+; MONOCYTES 8 % (0-5); NEUTROPHILS 56 % (28-66); PLATELET ESTIMATE NORMAL (NORMAL); POLYCHROMASIA 1+
[2022-07-29 07:49] LABS: ANISOCYTOSIS 2+
[2022-07-29 07:50] LABS: HYPOCHROMASIA 2+; POIKILOCYTOSIS 1+
[2022-07-29] MEDS: LACTOBACILLUS ACIDOPHILUS CAP (BACID) PO SCH ×2 (08:00→16:50)
[2022-07-29 08:12] LABS: INR 1.74; PROTHROMBIN TIME 20.7 SECONDS (12.5-14.5)
[2022-07-29 08:14] LABS: PARTIAL THROMBOPLASTIN TIME 117.5 SECONDS (24.8-34.2)
[2022-07-29] MEDS: INSULIN LISPRO (NovoLOG) PER UNIT SC SCH ×4 (08:15→21:00)
[2022-07-29] MEDS: MELOXICAM (MOBIC) 7.5 MG TAB PO SCH ×2 (08:15→21:26)
[2022-07-29] MEDS: VENLAFAXINE **XR** 75MG CAPSULE PO SCH (08:15)
[2022-07-29] MEDS: LOSARTAN 50MG TABLET PO SCH (08:16)
[2022-07-29] MEDS: AZITHROMYCIN 250MG TABLET PO SCH (08:16)
[2022-07-29] MEDS: METOPROLOL TART 25 MG TABLET PO SCH ×2 (08:16→21:23)
[2022-07-29] MEDS: PANTOPRAZOLE 40MG TAB (PROTONIX) PO SCH ×2 (08:17→21:23)
[2022-07-29] MEDS: NICOTINE 21MG/24HR 1 EA TRANSDERMAL TD SCH (08:17)
[2022-07-29] MEDS: MAGNESIUM OXIDE 400MG TAB (MAG-OX) PO SCH (08:17)
[2022-07-29] MEDS: CEFDINIR 300 MG CAP (OMNICEF) PO SCH ×2 (10:12→21:23)
[2022-07-29] MEDS: IPRATROPIUM 0.5MG/ALBUTEROL 2.5MG INH SOL UD 3ML (DUONEB) NEB PRN (11:56)
[2022-07-29 15:12] LABS: BODY FLUID CULTURE Not indicated. (.); LEGIONELLA ANTIGEN URINE Negative (Negative); ORGANISM ID Not indicated. (.); SPECIMEN SOURCE Urine (.); URINE STREP PNEUMONIAE ANTIGEN Negative (Negative)
[2022-07-29] MEDS ORDERED: WARFARIN SOD 3MG TAB PO ONE (17:00)
[2022-07-29] MEDS: SIMVASTATIN 20 MG TAB PO SCH (21:23)
[2022-07-30] MEDS ORDERED: oxyCODONE 5MG TAB PO ONE (01:00)
[2022-07-30 06:00] VITALS: BP 168/74
[2022-07-30 06:32] LABS: HEMATOCRIT 32.6 % (36.0-47.0); MEAN CORPUSCULAR HEMOGLOBIN 21.9 pg (27.0-33.0); MEAN CORPUSCULAR HGB CONC 27.6 g/dl (32.0-36.5); MEAN CORPUSCULAR VOLUME 79.3 fl (80.0-96.0); PLATELET COUNT, AUTOMATED 327 10^3/uL (150-450); RED BLOOD COUNT 4.11 10^6/uL (4.00-5.40); WHITE BLOOD COUNT 13.1 10^3/uL (4.0-10.0)
[2022-07-30 06:41] LABS: INR 1.67
[2022-07-30 06:43] LABS: PARTIAL THROMBOPLASTIN TIME 75.1 SECONDS (24.8-34.2)
[2022-07-30 07:04] LABS: ALBUMIN 2.8 G/DL (3.2-5.2); ALKALINE PHOSPHATASE 69 U/L (46-116); ALT/SGPT 14 U/L (7.0-40); AST/SGOT 10 U/L (<34); BILIRUBIN,TOTAL 0.2 MG/DL (0.3-1.2); BLOOD UREA NITROGEN 9 MG/DL (9-23); CARBON DIOXIDE LEVEL 33 MMOL/L (20-31); CHLORIDE LEVEL 103 MMOL/L (98-107); CREATININE FOR GFR 0.63 MG/DL (0.55-1.30); GLOMERULAR FILTRATION RATE > 60.0 (>45); GLUCOSE, FASTING 128 MG/DL (74-106); POTASSIUM SERUM 4.7 MMOL/L (3.5-5.1); SODIUM LEVEL 140 MMOL/L (136-145)
[2022-07-30 07:35] LABS: ANISOCYTOSIS 1+; ATYPICAL LYMPH 3 % (0-5); BASOPHILS 2 % (0-1); LYMPHOCYTES 52 % (16-44); MONOCYTES 8 % (0-5); NEUTROPHILS 35 % (28-66)
[2022-07-30 07:36] LABS: HYPOCHROMASIA 2+; MICROCYTOSIS 1+; PLATELET ESTIMATE NORMAL (NORMAL)
[2022-07-30] MEDS: INSULIN LISPRO (NovoLOG) PER UNIT SC SCH ×4 (08:14→20:55)
[2022-07-30] MEDS: NICOTINE 21MG/24HR 1 EA TRANSDERMAL TD SCH (08:14)
[2022-07-30] MEDS: VENLAFAXINE **XR** 75MG CAPSULE PO SCH (08:15)
[2022-07-30] MEDS: CEFDINIR 300 MG CAP (OMNICEF) PO SCH ×2 (08:15→21:06)
[2022-07-30] MEDS: MELOXICAM (MOBIC) 7.5 MG TAB PO SCH ×2 (08:15→21:07)
[2022-07-30] MEDS: PANTOPRAZOLE 40MG TAB (PROTONIX) PO SCH ×2 (08:15→21:06)
[2022-07-30] MEDS: MAGNESIUM OXIDE 400MG TAB (MAG-OX) PO SCH (08:15)
[2022-07-30] MEDS: LACTOBACILLUS ACIDOPHILUS CAP (BACID) PO SCH ×2 (08:15→17:22)
[2022-07-30] MEDS: METOPROLOL TART 25 MG TABLET PO SCH ×2 (08:19→21:07)
[2022-07-30] MEDS: LOSARTAN 50MG TABLET PO SCH (08:19)
[2022-07-30] MEDS: HEPARIN DRIP 25,000 UNITS in IV 1 EA IV SCH (09:14)
[2022-07-30 14:00] VITALS: BP 123/87
[2022-07-30] MEDS ORDERED: WARFARIN SOD 5MG TAB PO ONE (17:00)
[2022-07-30] MEDS: SIMVASTATIN 20 MG TAB PO SCH (21:06)
[2022-07-31] MEDS: HEPARIN DRIP 25,000 UNITS in IV 1 EA IV SCH ×2 (02:10→17:53)
[2022-07-31 06:00] VITALS: BP 122/83
[2022-07-31 06:23] LABS: HEMATOCRIT 32.4 % (36.0-47.0); HEMOGLOBIN 8.7 g/dl (12.0-15.5); MEAN CORPUSCULAR HEMOGLOBIN 21.6 pg (27.0-33.0); MEAN CORPUSCULAR HGB CONC 26.9 g/dl (32.0-36.5); MEAN CORPUSCULAR VOLUME 80.6 fl (80.0-96.0); PLATELET COUNT, AUTOMATED 317 10^3/uL (150-450); RED BLOOD COUNT 4.02 10^6/uL (4.00-5.40)
[2022-07-31 06:35] LABS: INR 1.43; PROTHROMBIN TIME 17.7 SECONDS (12.5-14.5)
[2022-07-31 06:37] LABS: PARTIAL THROMBOPLASTIN TIME 113.1 SECONDS (24.8-34.2)
[2022-07-31 06:44] LABS: ATYPICAL LYMPH 1 % (0-5); LYMPHOCYTES 49 % (16-44); METAMYELOCYTES 1 % (0-0); MONOCYTES 5 % (0-5); NEUTROPHILS 44 % (28-66)
[2022-07-31 06:47] LABS: ANISOCYTOSIS 2+; HYPOCHROMASIA 1+; MICROCYTOSIS 1+; PLATELET CLUMPS SMALL AMT; PLATELET ESTIMATE NORMAL (NORMAL); POLYCHROMASIA 1+; SMUDGE CELLS 1+
[2022-07-31 06:50] LABS: ALBUMIN 2.8 G/DL (3.2-5.2); ALKALINE PHOSPHATASE 65 U/L (46-116); ALT/SGPT 15 U/L (7.0-40); AST/SGOT 11 U/L (<34); BILIRUBIN,TOTAL 0.2 MG/DL (0.3-1.2); BLOOD UREA NITROGEN 12 MG/DL (9-23); CALCIUM LEVEL 9.2 MG/DL (8.3-10.6); CARBON DIOXIDE LEVEL 33 MMOL/L (20-31); CHLORIDE LEVEL 102 MMOL/L (98-107); CREATININE FOR GFR 0.63 MG/DL (0.55-1.30); GLOMERULAR FILTRATION RATE > 60.0 (>45); GLUCOSE, FASTING 159 MG/DL (74-106); POTASSIUM SERUM 4.5 MMOL/L (3.5-5.1); SODIUM LEVEL 140 MMOL/L (136-145)
[2022-07-31] MEDS: NICOTINE 21MG/24HR 1 EA TRANSDERMAL TD SCH (08:15)
[2022-07-31] MEDS: INSULIN LISPRO (NovoLOG) PER UNIT SC SCH ×4 (08:16→21:00)
[2022-07-31] MEDS: VENLAFAXINE **XR** 75MG CAPSULE PO SCH (08:18)
[2022-07-31] MEDS: LACTOBACILLUS ACIDOPHILUS CAP (BACID) PO SCH ×2 (08:18→19:02)
[2022-07-31] MEDS: PANTOPRAZOLE 40MG TAB (PROTONIX) PO SCH ×2 (08:19→21:42)
[2022-07-31] MEDS: MELOXICAM (MOBIC) 7.5 MG TAB PO SCH ×2 (08:19→21:42)
[2022-07-31] MEDS: MAGNESIUM OXIDE 400MG TAB (MAG-OX) PO SCH (08:20)
[2022-07-31] MEDS: METOPROLOL TART 25 MG TABLET PO SCH ×2 (08:29→21:42)
[2022-07-31] MEDS: LOSARTAN 50MG TABLET PO SCH (08:30)
[2022-07-31] MEDS: CEFDINIR 300 MG CAP (OMNICEF) PO SCH ×2 (11:06→21:43)
[2022-07-31 14:00] VITALS: BP 128/50
[2022-07-31] MEDS ORDERED: FUROSEMIDE 40 MG TAB PO ONE (14:10)
[2022-07-31 19:43] VITALS: BP 132/62
[2022-07-31] MEDS: SIMVASTATIN 20 MG TAB PO SCH (21:41)
[2022-08-01 04:59] VITALS: BP 138/66
[2022-08-01 06:25] LABS: HEMATOCRIT 31.9 % (36.0-47.0); HEMOGLOBIN 8.7 g/dl (12.0-15.5); MEAN CORPUSCULAR HEMOGLOBIN 21.9 pg (27.0-33.0); MEAN CORPUSCULAR HGB CONC 27.3 g/dl (32.0-36.5); MEAN CORPUSCULAR VOLUME 80.2 fl (80.0-96.0); PLATELET COUNT, AUTOMATED 300 10^3/uL (150-450); RED BLOOD COUNT 3.98 10^6/uL (4.00-5.40); WHITE BLOOD COUNT 13.1 10^3/uL (4.0-10.0)
[2022-08-01 06:35] LABS: INR 1.04; PROTHROMBIN TIME 13.8 SECONDS (12.5-14.5)
[2022-08-01 06:37] LABS: PARTIAL THROMBOPLASTIN TIME 91.9 SECONDS (24.8-34.2)
[2022-08-01 06:47] LABS: ATYPICAL LYMPH 2 % (0-5); BASOPHILS 2 % (0-1); EOSINOPHILS 1 % (0-3); LYMPHOCYTES 49 % (16-44); METAMYELOCYTES 1 % (0-0); MONOCYTES 2 % (0-5); MYELOCYTES 1 % (0-0); NEUTROPHILS 42 % (28-66)
[2022-08-01 06:48] LABS: PLATELET ESTIMATE NORMAL (NORMAL)
[2022-08-01 06:49] LABS: ANISOCYTOSIS 2+; HYPOCHROMASIA 1+; MICROCYTOSIS 1+; POLYCHROMASIA 1+
[2022-08-01 06:50] LABS: SMUDGE CELLS 1+
[2022-08-01 06:58] LABS: ALBUMIN 2.7 G/DL (3.2-5.2); ALKALINE PHOSPHATASE 61 U/L (46-116); ALT/SGPT 13 U/L (7.0-40); AST/SGOT 14 U/L (<34); BILIRUBIN,TOTAL 0.3 MG/DL (0.3-1.2); BLOOD UREA NITROGEN 14 MG/DL (9-23); CALCIUM LEVEL 8.8 MG/DL (8.3-10.6); CARBON DIOXIDE LEVEL 33 MMOL/L (20-31); CHLORIDE LEVEL 103 MMOL/L (98-107); CREATININE FOR GFR 0.66 MG/DL (0.55-1.30); GLOMERULAR FILTRATION RATE > 60.0 (>45); GLUCOSE, FASTING 163 MG/DL (74-106); POTASSIUM SERUM 4.3 MMOL/L (3.5-5.1); SODIUM LEVEL 140 MMOL/L (136-145); TOTAL PROTEIN 5.9 G/DL (5.7-8.2)
[2022-08-01] MEDS: CEFDINIR 300 MG CAP (OMNICEF) PO SCH ×2 (09:44→21:17)
[2022-08-01] MEDS: INSULIN LISPRO (NovoLOG) PER UNIT SC SCH ×4 (09:45→20:39)
[2022-08-01] MEDS: MAGNESIUM OXIDE 400MG TAB (MAG-OX) PO SCH (09:46)
[2022-08-01] MEDS: MELOXICAM (MOBIC) 7.5 MG TAB PO SCH ×2 (09:46→21:17)
[2022-08-01] MEDS: PANTOPRAZOLE 40MG TAB (PROTONIX) PO SCH ×2 (09:46→21:17)
[2022-08-01] MEDS: LACTOBACILLUS ACIDOPHILUS CAP (BACID) PO SCH ×2 (09:46→17:25)
[2022-08-01] MEDS: VENLAFAXINE **XR** 75MG CAPSULE PO SCH (09:47)
[2022-08-01] MEDS: FUROSEMIDE 40 MG TAB PO SCH (09:47)
[2022-08-01] MEDS: NICOTINE 21MG/24HR 1 EA TRANSDERMAL TD SCH (09:48)
[2022-08-01] MEDS: LOSARTAN 50MG TABLET PO SCH (09:58)
[2022-08-01] MEDS: METOPROLOL TART 25 MG TABLET PO SCH ×2 (09:59→21:17)
[2022-08-01] MEDS: HEPARIN DRIP 25,000 UNITS in IV 1 EA IV SCH (11:00)
[2022-08-01 14:00] VITALS: BP 124/60
[2022-08-01 20:45] VITALS: BP 142/71
[2022-08-01 21:00] VITALS: BP 132/72
[2022-08-01] MEDS: SIMVASTATIN 20 MG TAB PO SCH (21:16)
[2022-08-01] MEDS ORDERED: ACETAMINOPHEN TAB 650MG DOSE (2X325MG) PO PRN (22:10)
[2022-08-02] MEDS: HEPARIN DRIP 25,000 UNITS in IV 1 EA IV SCH ×2 (04:21→21:25)
[2022-08-02 06:00] VITALS: BP 156/70
[2022-08-02 06:16] LABS: INR 0.93; PROTHROMBIN TIME 12.7 SECONDS (12.5-14.5)
[2022-08-02 07:06] LABS: PARTIAL THROMBOPLASTIN TIME 83.6 SECONDS (24.8-34.2)
[2022-08-02] MEDS: INSULIN LISPRO (NovoLOG) PER UNIT SC SCH ×4 (07:30→21:00)
[2022-08-02] MEDS: NICOTINE 21MG/24HR 1 EA TRANSDERMAL TD SCH (08:55)
[2022-08-02] MEDS: LACTOBACILLUS ACIDOPHILUS CAP (BACID) PO SCH ×2 (08:58→17:08)
[2022-08-02] MEDS: MAGNESIUM OXIDE 400MG TAB (MAG-OX) PO SCH (08:58)
[2022-08-02] MEDS: CEFDINIR 300 MG CAP (OMNICEF) PO SCH ×2 (08:58→21:19)
[2022-08-02] MEDS: LOSARTAN 50MG TABLET PO SCH (08:58)
[2022-08-02] MEDS: PANTOPRAZOLE 40MG TAB (PROTONIX) PO SCH ×2 (08:59→21:19)
[2022-08-02] MEDS: METOPROLOL TART 25 MG TABLET PO SCH ×2 (08:59→21:00)
[2022-08-02] MEDS: MELOXICAM (MOBIC) 7.5 MG TAB PO SCH ×2 (08:59→21:19)
[2022-08-02] MEDS: VENLAFAXINE **XR** 75MG CAPSULE PO SCH (08:59)
[2022-08-02] MEDS: FUROSEMIDE 40 MG TAB PO SCH (08:59)
[2022-08-02] MEDS ORDERED: LIDOCAINE 1% MDV 20ML VIAL As Ordered ONE (13:45)
[2022-08-02 15:00] VITALS: BP 132/98
[2022-08-02 15:15] VITALS: BP 138/98
[2022-08-02 15:45] VITALS: BP 140/60
[2022-08-02 16:00] VITALS: BP 140/70
[2022-08-02 20:53] VITALS: BP 102/57
[2022-08-02] MEDS: SIMVASTATIN 20 MG TAB PO SCH (21:19)
[2022-08-03 06:05] VITALS: BP 137/81
[2022-08-03] MEDS ORDERED: FURO40TA2 PO (08:01)
[2022-08-03] MEDS ORDERED: PRED20TA PO (08:01)
[2022-08-03] MEDS ORDERED: LOVE0.8I SC (08:01)
[2022-08-03] MEDS: NICOTINE 21MG/24HR 1 EA TRANSDERMAL TD SCH (08:43)
[2022-08-03] MEDS: INSULIN LISPRO (NovoLOG) PER UNIT SC SCH (08:43)
[2022-08-03] MEDS: MAGNESIUM OXIDE 400MG TAB (MAG-OX) PO SCH (08:44)
[2022-08-03] MEDS: MELOXICAM (MOBIC) 7.5 MG TAB PO SCH (08:44)
[2022-08-03] MEDS: LACTOBACILLUS ACIDOPHILUS CAP (BACID) PO SCH (08:44)
[2022-08-03] MEDS: VENLAFAXINE **XR** 75MG CAPSULE PO SCH (08:44)
[2022-08-03] MEDS: PANTOPRAZOLE 40MG TAB (PROTONIX) PO SCH (08:44)
[2022-08-03] MEDS: FUROSEMIDE 40 MG TAB PO SCH (08:46)
[2022-08-03] MEDS: CEFDINIR 300 MG CAP (OMNICEF) PO SCH (08:47)
[2022-08-03 08:48] VITALS: BP 163/76
[2022-08-03] MEDS: LOSARTAN 50MG TABLET PO SCH (08:48)
[2022-08-03] MEDS: METOPROLOL TART 25 MG TABLET PO SCH (08:49)
[2022-08-03] MEDS ORDERED: ENOXAPARIN 100MG/1ML SYRINGE (J1650 PER 10MG) SC SCH (09:00)
[2022-08-03 09:19] LABS: PERCENT SATURATION 6.1 % (13.2-45.0)
[2022-08-03 09:25] LABS: FOLATE 13.34 NG/ML (>5.4)
[2022-08-03 09:26] LABS: FERRITIN 14.3 NG/ML (7.3-270.7)
== END 2022-08-03 10:24 | disposition home health service (06) | DRG 871 ==
LOC: M ED 10:16 → EDBD 10:16 → M ED INP 10:17 → UNDOADMOB 10:17 → INTOOBSV 13:43 → EEVIPCON 13:43 → M ED INP 13:43 → OBSVTOIN 13:43 → M ED INP 15:13 → M PCU 15:13 → M MSPAV 07-29 18:00
PROVIDERS: ADMIT General Practice; ATTEND Internal Medicine Nephrology
PROC: 0CJY8ZZ Inspection of Mouth and Throat, Via Natural or Artificial Opening Endoscopic (ICD-10-PCS; 2022-07-26)
PROC: B246ZZZ Ultrasonography of Right and Left Heart (ICD-10-PCS; 2022-07-26)
PROC: 0WB63ZX Excision of Neck, Percutaneous Approach, Diagnostic (ICD-10-PCS; principal; 2022-07-27 15:30)
PROC: 0FB23ZX Excision of Left Lobe Liver, Percutaneous Approach, Diagnostic (ICD-10-PCS; 2022-08-02)
DX: A41.9 Sepsis, unspecified organism (principal); G93.41 Metabolic encephalopathy; J15.6 Pneumonia due to other Gram-negative bacteria; D68.51 Activated protein C resistance; G90.522 Complex regional pain syndrome I of left lower limb; Z68.41 Body mass index [BMI] 40.0-44.9, adult; I50.32 Chronic diastolic (congestive) heart failure; E87.20 Acidosis, unspecified; J98.11 Atelectasis; I67.82 Cerebral ischemia; E72.20 Disorder of urea cycle metabolism, unspecified; E78.00 Pure hypercholesterolemia, unspecified; I11.0 Hypertensive heart disease with heart failure; K21.9 Gastro-esophageal reflux disease without esophagitis; E03.9 Hypothyroidism, unspecified; E04.2 Nontoxic multinodular goiter; F41.9 Anxiety disorder, unspecified; F32.A Depression, unspecified; F17.200 Nicotine dependence, unspecified, uncomplicated; E66.01 Morbid (severe) obesity due to excess calories; G47.33 Obstructive sleep apnea (adult) (pediatric); J44.9 Chronic obstructive pulmonary disease, unspecified; E88.81 Metabolic syndrome and other insulin resistance; E11.40 Type 2 diabetes mellitus with diabetic neuropathy, unspecified; M16.0 Bilateral primary osteoarthritis of hip; E53.8 Deficiency of other specified B group vitamins; M17.0 Bilateral primary osteoarthritis of knee; C10.2 Malignant neoplasm of lateral wall of oropharynx; K76.89 Other specified diseases of liver; M47.9 Spondylosis, unspecified; E78.5 Hyperlipidemia, unspecified; R13.10 Dysphagia, unspecified; R09.02 Hypoxemia; E11.51 Type 2 diabetes mellitus with diabetic peripheral angiopathy without gangrene; D64.9 Anemia, unspecified; R22.1 Localized swelling, mass and lump, neck; I15.2 Hypertension secondary to endocrine disorders; I65.21 Occlusion and stenosis of right carotid artery; I35.0 Nonrheumatic aortic (valve) stenosis; Z86.14 Personal history of Methicillin resistant Staphylococcus aureus infection; Z87.442 Personal history of urinary calculi; Z96.669 Presence of unspecified artificial ankle joint; Z86.718 Personal history of other venous thrombosis and embolism; Z79.01 Long term (current) use of anticoagulants; Z79.1 Long term (current) use of non-steroidal anti-inflammatories (NSAID); Z79.899 Other long term (current) drug therapy; Z88.1 Allergy status to other antibiotic agents; Z88.2 Allergy status to sulfonamides; Z88.5 Allergy status to narcotic agent; Z88.8 Allergy status to other drugs, medicaments and biological substances; Z91.048 Other nonmedicinal substance allergy status

== ENCOUNTER 2022-08-17 15:53 | Emergency (ER) | payer OTHER ==
[~2022-08-17] VITALS: Ht 152.4 cm; Wt 97.3 kg
[~2022-08-17 15:53] MED LIST changes: +AZIT-12 PO; +D3-5CAP PO; +FURO40TA2 PO; +GLIM2TAB29 PO; +LOSA50TA28 PO; +LOVE0.8I SC; +MAGN400T2 PO; +MELO7.5T35 PO; +METF500T13 PO; +METF850T4 PO; +METO1TAB87 PO; +PANT40TA29 PO; +PRED20TA PO; +SIMV20TA22 PO; +SIMV40TA20 PO; +TIZA4CAP6 PO; +VENL150C43 PO; +VENTAER INH; +WARF-23 PO; +WARF4TAB52 PO
[2022-08-17] MEDS ORDERED: ACETAMINOPHEN 500 MG TAB PO ONE (16:45)
[2022-08-17 17:02] VITALS: BP 148/67; TEMP 98.9; O2SAT 97
[2022-08-23] MEDS ORDERED: PERC5TAB12 PO (16:00)
== END 2022-08-17 17:19 | disposition home or self-care (01) ==
LOC: M ED 15:53
DX: S09.90XA Unspecified injury of head, initial encounter (principal); W19.XXXA Unspecified fall, initial encounter; Y92.239 Unspecified place in hospital as the place of occurrence of the external cause; Y93.89 Activity, other specified; Y99.8 Other external cause status; Z88.2 Allergy status to sulfonamides; Z88.5 Allergy status to narcotic agent; Z88.8 Allergy status to other drugs, medicaments and biological substances; Z79.52 Long term (current) use of systemic steroids; Z79.899 Other long term (current) drug therapy; Z79.01 Long term (current) use of anticoagulants; Z79.51 Long term (current) use of inhaled steroids
CPT/HCPCS: 31575; 70450; 99283; G0463

== ENCOUNTER 2022-08-29 19:04 | Inpatient (IN) | payer OTHER ==
[~2022-08-29] VITALS: Ht 152.4 cm; Wt 97.4 kg
[~2022-08-29 19:04] MED LIST changes: +PERC5TAB12 PO
[2022-08-29] MEDS ORDERED: IPRATROPIUM 0.5MG/ALBUTEROL 2.5MG INH SOL UD 3ML (DUONEB) NEB ONE (19:15)
[2022-08-29] MEDS ORDERED: IPRATROPIUM 0.5MG/ALBUTEROL 2.5MG INH SOL UD 3ML (DUONEB) NEB SCH (19:30)
[2022-08-29] MEDS ORDERED: methylPREDNISolone 125MG 2ML VIAL IV ONE (19:30)
[2022-08-29 19:40] LABS: BASO # 0.1 10^3/uL (0.0-0.2); BASO % 0.3 % (0.0-1.0); EOS # 0.1 10^3/uL (0.0-0.5); EOS % 0.7 % (0.0-3.0); HEMATOCRIT 31.1 % (36.0-47.0); HEMOGLOBIN 8.6 g/dl (12.0-15.5); LYMPH # 4.5 10^3/uL (1.5-5.0); LYMPH % 23.6 % (24.0-44.0); MEAN CORPUSCULAR HEMOGLOBIN 21.6 pg (27.0-33.0); MEAN CORPUSCULAR HGB CONC 27.7 g/dl (32.0-36.5); MEAN CORPUSCULAR VOLUME 77.9 fl (80.0-96.0); MONO # 1.3 10^3/uL (0.0-0.8); MONO % 6.6 % (2.0-8.0); NEUTROPHILS # 13.1 10^3/uL (1.5-8.5); NEUTROPHILS % 68.2 % (36.0-66.0); PLATELET COUNT, AUTOMATED 329 10^3/uL (150-450); RED BLOOD COUNT 3.99 10^6/uL (4.00-5.40); WHITE BLOOD COUNT 19.1 10^3/uL (4.0-10.0)
[2022-08-29 19:49] LABS: ABG BASE EXCESS 1.3 (-2.0-2.0); ABG HCO3 25.7 MMOL/L (22.0-26.0); ABG O2 SATURATION 95.2 % (95.0-99.0); ABG PARTIAL PRESSURE CO2 39.7 mmHg (35.0-45.0); ABG STANDARD HCO3 25.6 MMOL/L. (22.0-26.0); ABG TOTAL CO2 26.9 MMOL/L (23.0-31.0); ABG pH (ARTERIAL) 7.429 UNITS (7.350-7.450)
[2022-08-29 20:04] LABS: INR 2.02; PROTHROMBIN TIME 23.2 SECONDS (12.5-14.5)
[2022-08-29 20:06] LABS: CK-MB VALUE MASS < 1.0 NG/ML (<3.6)
[2022-08-29 20:07] LABS: CPK CREATINE PHOSPHOKINASE 56 U/L (34-145); MB/CK RELATIVE INDEX 1.78 (< OR =4)
[2022-08-29 20:08] LABS: ALKALINE PHOSPHATASE 86 U/L (46-116); ALT/SGPT 10 U/L (7.0-40); AST/SGOT < 8 U/L (<34); BILIRUBIN,DIRECT < 0.1 MG/DL (<0.4); BILIRUBIN,TOTAL 0.3 MG/DL (0.3-1.2); BLOOD UREA NITROGEN 16 MG/DL (9-23); CALCIUM LEVEL 8.9 MG/DL (8.3-10.6); CARBON DIOXIDE LEVEL 27 MMOL/L (20-31); CHLORIDE LEVEL 104 MMOL/L (98-107); CREATININE FOR GFR 0.58 MG/DL (0.55-1.30); GLOMERULAR FILTRATION RATE > 60.0 (>45); GLUCOSE, FASTING 264 MG/DL (74-106); POTASSIUM SERUM 4.1 MMOL/L (3.5-5.1); SODIUM LEVEL 138 MMOL/L (136-145)
[2022-08-29 20:09] LABS: THYROID STIMULATING HORMONE 0.453 uIU/ML (0.55-4.78)
[2022-08-29] MEDS ORDERED: ISOVUE-370 76% 100ML VIAL As Ordered ONE (20:26)
[2022-08-29 21:22] LABS: CK-MB VALUE MASS < 1.0 NG/ML (<3.6)
[2022-08-29 21:24] LABS: CPK CREATINE PHOSPHOKINASE 50 U/L (34-145)
[2022-08-29] MEDS ORDERED: cefTRIAXone SOD 2 GM in D5W MINI-BAG PLUS 50 ML IV ONE (22:40)
[2022-08-29] MEDS ORDERED: FURO40TA2 PO (22:46)
[2022-08-29] MEDS ORDERED: WARF-23 PO (22:56)
[2022-08-29] MEDS ORDERED: BREO1INH3 PO (22:58)
[2022-08-29] MEDS ORDERED: ALB2.5NEB NEB (22:58)
[2022-08-29] MEDS ORDERED: HOME MED LIST COMPLETE! XX SCH (23:00)
[2022-08-29] MEDS ORDERED: ACETAMINOPHEN TAB 650MG DOSE (2X325MG) PO PRN (23:35)
[2022-08-29] MEDS ORDERED: GLUCOSE 4GM CHEW TABLET PO PRN (23:35)
[2022-08-29] MEDS ORDERED: ALBUTEROL SULFATE 2.5MG/0.5ML INH NEB SOLN NEB PRN (23:35)
[2022-08-29] MEDS ORDERED: WARFARIN SOD 1MG TAB PO SCH (23:35)
[2022-08-29] MEDS ORDERED: DEXTROSE 50% 50ML SYRINGE IV PRN (23:35)
[2022-08-29] MEDS ORDERED: tiZANidine 4 MG TAB PO PRN (23:35)
[2022-08-29] MEDS ORDERED: GLUCAGON INJ 1MG VIAL SC PRN (23:35)
[2022-08-30] MEDS: METOPROLOL TART 25 MG TABLET PO SCH ×3 (00:22→20:34)
[2022-08-30] MEDS ORDERED: DOXYCYCLINE HYCLATE 100 MG in D5W MINI-BAG PLUS 100 ML IV SCH (01:00)
[2022-08-30] MEDS ORDERED: methylPREDNISolone 125MG 2ML VIAL IV SCH (01:00)
[2022-08-30] MEDS: IPRATROPIUM 0.5MG/ALBUTEROL 2.5MG INH SOL UD 3ML (DUONEB) NEB SCH ×4 (01:39→18:54)
[2022-08-30 06:42] LABS: HEMATOCRIT 32.6 % (36.0-47.0); MEAN CORPUSCULAR HGB CONC 27.6 g/dl (32.0-36.5); MEAN CORPUSCULAR VOLUME 79.5 fl (80.0-96.0); PLATELET COUNT, AUTOMATED 312 10^3/uL (150-450); WHITE BLOOD COUNT 17.2 10^3/uL (4.0-10.0)
[2022-08-30 06:48] LABS: BLOOD UREA NITROGEN 16 MG/DL (9-23); CALCIUM LEVEL 9.1 MG/DL (8.3-10.6); CARBON DIOXIDE LEVEL 28 MMOL/L (20-31); CHLORIDE LEVEL 104 MMOL/L (98-107); CREATININE FOR GFR 0.52 MG/DL (0.55-1.30); GLOMERULAR FILTRATION RATE > 60.0 (>45); GLUCOSE, FASTING 306 MG/DL (74-106); MAGNESIUM LEVEL 1.9 MG/DL (1.8-2.4); POTASSIUM SERUM 4.3 MMOL/L (3.5-5.1); SODIUM LEVEL 141 MMOL/L (136-145)
[2022-08-30 06:53] LABS: INR 1.92; PROTHROMBIN TIME 22.3 SECONDS (12.5-14.5)
[2022-08-30 07:18] LABS: CK-MB VALUE MASS < 1.0 NG/ML (<3.6); CPK CREATINE PHOSPHOKINASE 53 U/L (34-145); MB/CK RELATIVE INDEX 1.88 (< OR =4)
[2022-08-30] MEDS ORDERED: ALBUTEROL SULFATE 2.5MG/0.5ML INH NEB SOLN NEB PRN (07:55)
[2022-08-30] MEDS: LEVEMIR (INSULIN DETEMIR) 1 UNITS/0.01ML SC SCH (08:24)
[2022-08-30] MEDS: INSULIN LISPRO (NovoLOG) PER UNIT SC SCH ×3 (08:24→16:54)
[2022-08-30] MEDS: NICOTINE 21MG/24HR 1 EA TRANSDERMAL TD SCH (08:25)
[2022-08-30] MEDS: LOSARTAN 50MG TABLET PO SCH (08:25)
[2022-08-30] MEDS: MAGNESIUM OXIDE 400MG TAB (MAG-OX) PO SCH (08:25)
[2022-08-30] MEDS: PANTOPRAZOLE 40MG TAB (PROTONIX) PO SCH ×2 (08:25→20:33)
[2022-08-30] MEDS: DOXYCYCLINE HYCLATE 100MG TABLET PO SCH ×2 (08:25→20:34)
[2022-08-30] MEDS: FUROSEMIDE 40 MG TAB PO SCH (08:26)
[2022-08-30] MEDS: methylPREDNISolone 125MG 2ML VIAL IV SCH ×2 (08:26→16:54)
[2022-08-30] MEDS: ADVAIR HFA 230/21MCG INHALER INH SCH ×2 (08:36→18:50)
[2022-08-30] MEDS: DOCUSATE SODIUM 100MG CAPSULE PO SCH ×2 (09:00→20:35)
[2022-08-30] MEDS: FERROUS SULFATE 325MG TAB PO SCH ×2 (09:00→20:35)
[2022-08-30 12:13] VITALS: BP 161/74; TEMP 96.2; O2SAT 94
[2022-08-30] MEDS: MELOXICAM (MOBIC) 7.5 MG TAB PO SCH ×2 (12:49→21:58)
[2022-08-30] MEDS ORDERED: WARFARIN SOD 3MG TAB PO SCH (17:00)
[2022-08-30 20:00] VITALS: BP 138/59; TEMP 97.5; O2SAT 94
[2022-08-30] MEDS ORDERED: SIMVASTATIN 20 MG TAB PO SCH (21:00)
[2022-08-30] MEDS ORDERED: INSULIN LISPRO (NovoLOG) PER UNIT SC SCH (21:00)
[2022-08-30] MEDS ORDERED: SENNA 8.6 MG TAB (SENOKOT) PO SCH (21:00)
[2022-08-30] MEDS ORDERED: SIMVASTATIN 40 MG TAB PO SCH (21:00)
[2022-08-31] MEDS ORDERED: cefTRIAXone SOD 2 GM in D5W MINI-BAG PLUS 50 ML IV SCH ×2
[2022-08-31] MEDS: methylPREDNISolone 125MG 2ML VIAL IV SCH ×2 (00:45→08:54)
[2022-08-31] MEDS: IPRATROPIUM 0.5MG/ALBUTEROL 2.5MG INH SOL UD 3ML (DUONEB) NEB SCH ×2 (00:49→07:17)
[2022-08-31 04:00] VITALS: BP 137/60; TEMP 97.4; O2SAT 96
[2022-08-31 06:31] LABS: HEMATOCRIT 31.1 % (36.0-47.0); HEMOGLOBIN 8.7 g/dl (12.0-15.5); MEAN CORPUSCULAR HEMOGLOBIN 21.8 pg (27.0-33.0); MEAN CORPUSCULAR VOLUME 77.9 fl (80.0-96.0); PLATELET COUNT, AUTOMATED 349 10^3/uL (150-450); RED BLOOD COUNT 3.99 10^6/uL (4.00-5.40); WHITE BLOOD COUNT 17.9 10^3/uL (4.0-10.0)
[2022-08-31 06:41] LABS: INR 1.89
[2022-08-31 07:03] LABS: ALKALINE PHOSPHATASE 84 U/L (46-116); ALT/SGPT 10 U/L (7.0-40); AST/SGOT < 8 U/L (<34); BILIRUBIN,TOTAL 0.2 MG/DL (0.3-1.2); BLOOD UREA NITROGEN 27 MG/DL (9-23); CARBON DIOXIDE LEVEL 27 MMOL/L (20-31); CHLORIDE LEVEL 103 MMOL/L (98-107); CREATININE FOR GFR 0.63 MG/DL (0.55-1.30); GLOMERULAR FILTRATION RATE > 60.0 (>45); GLUCOSE, FASTING 382 MG/DL (74-106); POTASSIUM SERUM 4.8 MMOL/L (3.5-5.1); SODIUM LEVEL 139 MMOL/L (136-145); TOTAL PROTEIN 6.2 G/DL (5.7-8.2)
[2022-08-31] MEDS: ADVAIR HFA 230/21MCG INHALER INH SCH (07:17)
[2022-08-31 08:30] VITALS: BP 136/60; TEMP 98; O2SAT 94
[2022-08-31] MEDS: NICOTINE 21MG/24HR 1 EA TRANSDERMAL TD SCH (08:54)
[2022-08-31] MEDS: LEVEMIR (INSULIN DETEMIR) 1 UNITS/0.01ML SC SCH (08:55)
[2022-08-31] MEDS: INSULIN LISPRO (NovoLOG) PER UNIT SC SCH ×2 (08:55→12:57)
[2022-08-31] MEDS: PANTOPRAZOLE 40MG TAB (PROTONIX) PO SCH (08:55)
[2022-08-31 08:56] VITALS: BP 136/60
[2022-08-31] MEDS: DOXYCYCLINE HYCLATE 100MG TABLET PO SCH (08:56)
[2022-08-31] MEDS: FUROSEMIDE 40 MG TAB PO SCH (08:56)
[2022-08-31] MEDS: MAGNESIUM OXIDE 400MG TAB (MAG-OX) PO SCH (08:56)
[2022-08-31] MEDS: LOSARTAN 50MG TABLET PO SCH (08:56)
[2022-08-31] MEDS: DOCUSATE SODIUM 100MG CAPSULE PO SCH (08:56)
[2022-08-31] MEDS: METOPROLOL TART 25 MG TABLET PO SCH (08:56)
[2022-08-31] MEDS: FERROUS SULFATE 325MG TAB PO SCH (09:00)
[2022-08-31] MEDS: MELOXICAM (MOBIC) 7.5 MG TAB PO SCH (10:42)
[2022-08-31] MEDS ORDERED: DOXY100T PO (10:46)
[2022-08-31] MEDS ORDERED: PRED50TA PO (10:46)
[2022-08-31] MEDS ORDERED: CEFD300C41 PO (10:46)
[2022-08-31] MEDS ORDERED: GUAI200T6 PO (10:56)
[2022-08-31] MEDS ORDERED: WARFARIN SOD 7.5MG TAB PO SCH (17:00)
== END 2022-08-31 13:22 | disposition home or self-care (01) | DRG 871 ==
LOC: M ED 19:04 → M ED INP 23:32 → ENRESERV 08-30 10:24 → M PCU 08-30 11:44
PROVIDERS: ADMIT Internal Medicine; ATTEND Family Medicine
DX: A41.89 Other specified sepsis (principal); J15.9 Unspecified bacterial pneumonia; J96.01 Acute respiratory failure with hypoxia; I50.32 Chronic diastolic (congestive) heart failure; D68.51 Activated protein C resistance; C22.1 Intrahepatic bile duct carcinoma; C83.00 Small cell B-cell lymphoma, unspecified site; G90.522 Complex regional pain syndrome I of left lower limb; J44.0 Chronic obstructive pulmonary disease with (acute) lower respiratory infection; J44.1 Chronic obstructive pulmonary disease with (acute) exacerbation; I24.8 Other forms of acute ischemic heart disease; Z68.41 Body mass index [BMI] 40.0-44.9, adult; F17.200 Nicotine dependence, unspecified, uncomplicated; E66.01 Morbid (severe) obesity due to excess calories; Z86.718 Personal history of other venous thrombosis and embolism; E78.00 Pure hypercholesterolemia, unspecified; I11.0 Hypertensive heart disease with heart failure; K21.9 Gastro-esophageal reflux disease without esophagitis; E03.9 Hypothyroidism, unspecified; E04.2 Nontoxic multinodular goiter; B34.8 Other viral infections of unspecified site; F41.9 Anxiety disorder, unspecified; F32.A Depression, unspecified; Z86.14 Personal history of Methicillin resistant Staphylococcus aureus infection; E11.9 Type 2 diabetes mellitus without complications; D50.9 Iron deficiency anemia, unspecified; Z79.01 Long term (current) use of anticoagulants; Z79.1 Long term (current) use of non-steroidal anti-inflammatories (NSAID); Z79.84 Long term (current) use of oral hypoglycemic drugs; Z79.899 Other long term (current) drug therapy; Z88.1 Allergy status to other antibiotic agents; Z88.5 Allergy status to narcotic agent; Z88.8 Allergy status to other drugs, medicaments and biological substances; Z91.048 Other nonmedicinal substance allergy status; Z88.2 Allergy status to sulfonamides

== ENCOUNTER → 2022-09-03 | Outpatient (CLI) | payer OTHER ==
[~2022-09-03] MED LIST changes: +ALB2.5NEB NEB; +BREO1INH3 PO; +CEFD300C41 PO; +DOXY100T PO; +GUAI200T6 PO; +PRED50TA PO
== END ==
LOC: M ONCR 13:42
PROVIDERS: ATTEND General Practice
DX: C22.1 Intrahepatic bile duct carcinoma (principal); R22.1 Localized swelling, mass and lump, neck; D68.51 Activated protein C resistance; E03.9 Hypothyroidism, unspecified; E11.51 Type 2 diabetes mellitus with diabetic peripheral angiopathy without gangrene; E66.01 Morbid (severe) obesity due to excess calories; E78.5 Hyperlipidemia, unspecified; F17.210 Nicotine dependence, cigarettes, uncomplicated; F32.A Depression, unspecified; F41.9 Anxiety disorder, unspecified; I11.9 Hypertensive heart disease without heart failure; I50.30 Unspecified diastolic (congestive) heart failure; I73.9 Peripheral vascular disease, unspecified; J44.9 Chronic obstructive pulmonary disease, unspecified; K21.9 Gastro-esophageal reflux disease without esophagitis; R10.13 Epigastric pain; R13.10 Dysphagia, unspecified; Z71.2 Person consulting for explanation of examination or test findings; Z79.01 Long term (current) use of anticoagulants; Z79.1 Long term (current) use of non-steroidal anti-inflammatories (NSAID); Z79.52 Long term (current) use of systemic steroids; Z79.84 Long term (current) use of oral hypoglycemic drugs; Z79.899 Other long term (current) drug therapy; Z80.0 Family history of malignant neoplasm of digestive organs; Z86.718 Personal history of other venous thrombosis and embolism; Z87.442 Personal history of urinary calculi; Z88.1 Allergy status to other antibiotic agents; Z88.2 Allergy status to sulfonamides; Z88.5 Allergy status to narcotic agent; Z88.8 Allergy status to other drugs, medicaments and biological substances; Z90.10 Acquired absence of unspecified breast and nipple; Z90.710 Acquired absence of both cervix and uterus; Z91.048 Other nonmedicinal substance allergy status
CPT/HCPCS: 31575; G0463

== ENCOUNTER → 2022-10-04 | Outpatient (CLI) | payer OTHER ==
[~2022-10-04] MED LIST changes: +ALPR0.5T3 PO; +AMOX875T2 PO; +ONDA-83 PO; +VITATAB73 PO
== END ==
LOC: M PLARAD 14:46
PROVIDERS: ATTEND Specialist
DX: C22.1 Intrahepatic bile duct carcinoma (principal)
CPT/HCPCS: 78815; A9552

== ENCOUNTER → 2022-10-11 | Outpatient (RCR) | payer OTHER ==
[~2022-10-11] MED LIST changes: -AMOX875T2 PO; -VITATAB73 PO
== END ==
LOC: M ONCR 09-17 12:26
PROVIDERS: ATTEND General Practice
DX: C22.1 Intrahepatic bile duct carcinoma (principal); C85.81 Other specified types of non-Hodgkin lymphoma, lymph nodes of head, face, and neck

== ENCOUNTER 2022-11-08 12:57 | Day surgery (SDC) | payer OTHER ==
[~2022-11-08] VITALS: Ht 152.4 cm; Wt 99.7 kg
[~2022-11-08 12:57] MED LIST changes: +NS 1,000 ML IV ONE; +VITATAB73 PO
[2022-11-08] MEDS ORDERED: LIDOCAINE 2% 100MG/5ML SDV (FOR ANES.) As Ordered ONE (14:55)
[2022-11-08] MEDS ORDERED: propofoL 200 MG/20 ML VIAL As Ordered ONE (14:55)
[2022-11-08] MEDS ORDERED: fentaNYL 100 MCG/2 ML INJECTION As Ordered ONE (14:55)
[2022-11-08 15:11] VITALS: TEMP 98
[2022-11-08 15:56] VITALS: BP 151/63; O2SAT 97
== END 2022-11-08 15:59 | disposition home or self-care (01) ==
LOC: M OPP 12:57
PROVIDERS: ATTEND Internal Medicine Gastroenterology
DX: K31.89 Other diseases of stomach and duodenum (principal); F17.200 Nicotine dependence, unspecified, uncomplicated; Z79.51 Long term (current) use of inhaled steroids; Z79.52 Long term (current) use of systemic steroids; Z79.84 Long term (current) use of oral hypoglycemic drugs; Z79.899 Other long term (current) drug therapy; Z88.1 Allergy status to other antibiotic agents; Z88.2 Allergy status to sulfonamides; Z88.5 Allergy status to narcotic agent; Z91.048 Other nonmedicinal substance allergy status
CPT/HCPCS: 43239; 88305; J3010

== ENCOUNTER → 2022-11-11 | Outpatient (RCR) | payer OTHER ==
[~2022-11-11] MED LIST changes: -NS 1,000 ML IV ONE
== END ==
LOC: M ONCR 10-12 10:08
PROVIDERS: ATTEND General Practice
DX: Z51.0 Encounter for antineoplastic radiation therapy (principal); C22.1 Intrahepatic bile duct carcinoma; C85.81 Other specified types of non-Hodgkin lymphoma, lymph nodes of head, face, and neck

== ENCOUNTER → 2023-02-07 | Outpatient (CLI) | payer OTHER ==
[~2023-02-07] MED LIST changes: +ACET650T61 PO; +AMOX500C PO; +AMOX875T2 PO; -CEFD300C41 PO; +CEFD300C42 PO
== END ==
LOC: M PLARAD 08:11
PROVIDERS: ATTEND General Practice
DX: C85.81 Other specified types of non-Hodgkin lymphoma, lymph nodes of head, face, and neck (principal); C22.1 Intrahepatic bile duct carcinoma
CPT/HCPCS: 78815; A9552

== ENCOUNTER → 2023-03-04 | Outpatient (CLI) | payer OTHER ==
[~2023-03-04] MED LIST changes: +CARA1TAB6 PO; +CEFD1CAP9 PO; -CEFD300C42 PO; +LORA1TAB23 PO; +PROHANCE 279.3MG/ML 15ML VIAL As Ordered ONE; +PROHANCE 279.3MG/ML 5ML VIAL As Ordered ONE
== END ==
LOC: M RAD 10:05
PROVIDERS: ATTEND General Practice
DX: C22.1 Intrahepatic bile duct carcinoma (principal); N28.1 Cyst of kidney, acquired
CPT/HCPCS: 74183; A9576

== ENCOUNTER 2023-04-14 13:36 | Outpatient (RCR) | payer MEDICARE, OTHER ==
[~2023-04-14 13:36] MED LIST changes: -PROHANCE 279.3MG/ML 15ML VIAL As Ordered ONE; -PROHANCE 279.3MG/ML 5ML VIAL As Ordered ONE
[2023-05-05] MEDS ORDERED: LORA1TAB23 PO (15:31)
== END 2023-05-12 ==
LOC: M ONCR 13:36
PROVIDERS: ATTEND General Practice
DX: Z51.0 Encounter for antineoplastic radiation therapy (principal); C22.1 Intrahepatic bile duct carcinoma

== ENCOUNTER → 2023-12-19 | Outpatient (CLI) | payer MEDICARE ==
[~2023-12-19] MED LIST changes: +GASTROGRAFIN SOLUTION 30ML As Ordered ONE; +ISOVUE-370 76% 100ML VIAL As Ordered ONE; +METF-1191 PO; +TIZA4CAP3 PO; -TIZA4CAP6 PO
== END ==
LOC: M RAD 12:53
PROVIDERS: ATTEND Specialist
DX: D50.9 Iron deficiency anemia, unspecified (principal); C91.50 Adult T-cell lymphoma/leukemia (HTLV-1-associated) not having achieved remission
CPT/HCPCS: 70491; 71260; 74177; Q9963; Q9967

== ENCOUNTER → 2024-01-31 | Outpatient (CLI) | payer MEDICARE ==
[~2024-01-31] MED LIST changes: -GASTROGRAFIN SOLUTION 30ML As Ordered ONE; -ISOVUE-370 76% 100ML VIAL As Ordered ONE
== END ==
LOC: M ONCR 12:31
PROVIDERS: ATTEND General Practice
DX: C85.81 Other specified types of non-Hodgkin lymphoma, lymph nodes of head, face, and neck (principal); C22.1 Intrahepatic bile duct carcinoma; F17.210 Nicotine dependence, cigarettes, uncomplicated; Z79.01 Long term (current) use of anticoagulants; Z79.84 Long term (current) use of oral hypoglycemic drugs; Z79.51 Long term (current) use of inhaled steroids; Z79.899 Other long term (current) drug therapy; Z92.3 Personal history of irradiation; Z88.1 Allergy status to other antibiotic agents; Z88.2 Allergy status to sulfonamides; Z88.8 Allergy status to other drugs, medicaments and biological substances; Z88.5 Allergy status to narcotic agent; Z91.048 Other nonmedicinal substance allergy status

== ENCOUNTER → 2024-04-04 | Outpatient (CLI) | payer MEDICARE | LOC: M SOG 13:10 | PROVIDERS: ATTEND Physician Assistant | DX: M16.11 Unilateral primary osteoarthritis, right hip (principal) ==

== ENCOUNTER → 2024-04-06 | Outpatient (CLI) | payer MEDICARE ==
[~2024-04-06] MED LIST changes: +PROHANCE 279.3MG/ML 15ML VIAL As Ordered ONE; +PROHANCE 279.3MG/ML 5ML VIAL As Ordered ONE
== END ==
LOC: M RAD 12:07
PROVIDERS: ATTEND Registered Nurse
DX: C22.1 Intrahepatic bile duct carcinoma (principal)
CPT/HCPCS: 74181; A9576

== ENCOUNTER → 2024-07-18 | Outpatient (CLI) | payer MEDICARE ==
[~2024-07-18] MED LIST changes: +BUPR-71; +HYDR-3713; -PRED50TA PO; +PRED50TA57 PO; -PROHANCE 279.3MG/ML 15ML VIAL As Ordered ONE; -PROHANCE 279.3MG/ML 5ML VIAL As Ordered ONE; +TRAZ-252 PO
== END ==
LOC: M ONCR 15:38
PROVIDERS: ATTEND General Practice
DX: C85.81 Other specified types of non-Hodgkin lymphoma, lymph nodes of head, face, and neck (principal); C22.1 Intrahepatic bile duct carcinoma; F17.210 Nicotine dependence, cigarettes, uncomplicated; Z80.0 Family history of malignant neoplasm of digestive organs; Z92.3 Personal history of irradiation; Z88.1 Allergy status to other antibiotic agents; Z88.5 Allergy status to narcotic agent; Z88.8 Allergy status to other drugs, medicaments and biological substances; Z88.2 Allergy status to sulfonamides; Z91.048 Other nonmedicinal substance allergy status; Z79.02 Long term (current) use of antithrombotics/antiplatelets; Z79.51 Long term (current) use of inhaled steroids; Z79.84 Long term (current) use of oral hypoglycemic drugs; Z79.899 Other long term (current) drug therapy

== ENCOUNTER → 2024-10-01 | Outpatient (CLI) | payer MEDICARE ==
[~2024-10-01] MED LIST changes: +ISOVUE-370 76% 100 ML VIAL As Ordered ONE
== END ==
LOC: M RAD 14:25
PROVIDERS: ATTEND General Practice
DX: C22.1 Intrahepatic bile duct carcinoma (principal); I70.1 Atherosclerosis of renal artery; N28.1 Cyst of kidney, acquired; K57.30 Diverticulosis of large intestine without perforation or abscess without bleeding
CPT/HCPCS: 71260; 74177; Q9967

== ENCOUNTER → 2024-10-04 | Outpatient (CLI) | payer MEDICARE ==
[~2024-10-04] MED LIST changes: -ISOVUE-370 76% 100 ML VIAL As Ordered ONE
== END ==
LOC: M ONCR 14:14
PROVIDERS: ATTEND General Practice
DX: Z08 Encounter for follow-up examination after completed treatment for malignant neoplasm (principal); Z85.89 Personal history of malignant neoplasm of other organs and systems; Z92.3 Personal history of irradiation